=== PATIENT | female | born 1930 | race Caucasian/White ===

== ENCOUNTER 2016-09-24 22:52 | Inpatient (IN) | payer OTHER, BC ==
--- NOTE | 2016-09-24 23:12 | DR.GENAD ---
HPI - PCP Primary Care Physician: ALISON - Complaint/Symptoms Chief Complaint:: EMS RESPONDED TO A CALL FOR A FALL/LIFT ASSIST. EMS STATES , PATIENT SEEMS CONFUSED AND UNSURE IF THIS IS SOMETHING NEW. STATES PATIENT WAS DIAGNOSED WITH ALZHEIMERS 2 YRS AGO. STATES PATIENT IS UNSTEADY OF FEET. - Nurses notes reviewed Nurses Notes Review: Yes - Source History Provided: Patient, EMS - Mode of Arrival Mode of Arrival: EMS - Timing Onset of Chief Complaint: 09/24/16 Came on: Gradually - Duration Duration: Constant Duration: Hours - Location Location: generalized - Severity Severity: Moderate - Associated Signs and Symptoms Associated Signs and Symptoms: confused answers, smiles alot PMH - PMH Past Medical History: Yes Past Medical History: Alzheimers, Arthritis, Dementia, Hypertension, Kidney Stones Past Surgical History: Yes Surgical History: Cholecystectomy - Family History History of Family Medical Conditions: Yes Family Medical History: Hypertension - Social History Type of Tobacco Use: None Alcohol Use: None Do you use any recreational Drugs:: No Lives With: Spouse Lives Where: Home - infectious screening Have you traveled outside the country in the last 6 months?: No Isolation: Standard ROS - Review of Systems Constitutional: No Symptoms Reported Eyes: No Symptoms Reported ENTM: No Symptoms Reported Respiratoy: No Symptoms Reported Cardiovascular: No Symptoms Reported Gastrointestinal/Abdominal: No Symptoms Reported Genitourinary: No Symptoms Reported Neurological: Weakness Musculoskeletal: No Symptoms Reported Integumentary: No Symptoms Reported Hematologic/Lymphatic: No Symptoms Reported Endocrine: No Symptoms Reported Psychiatric: No Symptoms Reported Unable to Obtain Due To: Dementia PE - Vital Signs Vitals: Temperature 98.3 F Pulse Rate 93 Respiratory Rate 18 Blood Pressure 121/63 O2 Sat by Pulse Oximetry 100 - General Limitations: Altered Mental Status General Appearance: Alert, In No Apparent Distress - Head Head Exam: Normal Inspection - Eyes Eye exam: Normal Appearance, EOMI. negative: Scleral Icterus, Conjunctival Injection - ENT ENT Exam: Normal Exam, Normal Oropharynx External Ear Exam: Normal External Inspection - Neck Neck Exam: Normal Inspection, Full ROM, Trachea Midline - Chest Chest Inspection: Normal Inspection - Respiratory Respiratory Exam: Normal Lung Sounds Bilat. negative: Accessory Muscle Use, Respiratory Distress Respiratory Exam: Bilateral Clear to Auscultation - Cardiovascular Cardiovascular Exam: Regular Rate, Normal Rhythm - Abdominal Exam Abdominal Exam: Normal Inspection, Normal Bowel Sounds, Soft. negative: Distention, Tenderness - Extremities Extremities Exam: Normal Inspection, Full ROM - Back Back Exam: Normal Inspection, Full ROM - Neurologic Neurological Exam: Alert, CN II-XII Intact. negative: Oriented X3 - Psychiatric Psychiatric Exam: Normal Mood - Skin Skin Exam: Intact, Normal Color Course - Consultation Called: 23:45 (admitted 1223 per charge nurse) Consultation Comments: unable to contact DR. Whelan ROR - Labs Reviewed Result Diagrams: 09/24/16 23:20 09/24/16 23:20 Laboratory: WBC 7.2 X10^3/uL (3.6-10.0) 09/24/16 23:20 RBC 3.85 X10^6/uL (3.5-5.4) 09/24/16 23:20 Hgb 11.9 g/dL (12.0-16.0) L 09/24/16 23:20 Hct 36.2 % (36.0-47.0) 09/24/16 23:20 MCV 93.8 fL (80.0-100.0) 09/24/16 23:20 MCH 31.0 pg (27.0-34.0) 09/24/16 23:20 MCHC 33.0 g/dL (33.0-35.0) 09/24/16 23:20 RDW 12.6 % (11.6-16.5) 09/24/16 23:20 Plt Count 245 X10^3/uL (150.0-450.0) 09/24/16 23:20 MPV 8.1 fL (7.4-11.0) 09/24/16 23:20 Neut % 77.2 % (42.0-75.0) H 09/24/16 23:20 Lymph % 14.4 % (21.0-51.0) L 09/24/16 23:20 [place] % 6.0 % (0.0-13.0) 09/24/16 23:20 Eos % 1.6 % (0.9-2.9) 09/24/16 23:20 Baso % 0.8 % (0.2-1.0) 09/24/16 23:20 Neut # 5.6 x10^3/uL (2.2-4.8) H 09/24/16 23:20 Lymph # 1.0 X10^3/uL (1.3-2.9) L 09/24/16 23:20 [place] # 0.4 x10^3/uL (0.3-0.8) 09/24/16 23:20 Eos # 0.1 x10^3/uL (0.0-0.2) 09/24/16 23:20 Baso # 0.1 X10^3/uL (0.0-0.1) 09/24/16 23:20 Absolute Nucleated RBC 0.1 /100WBC 09/24/16 23:20 Sodium 141 mmol/L (136-145) 09/24/16 23:20 Corrected Sodium 141 mmol/L (136-145) 09/24/16 23:20 Potassium 3.5 mmol/L (3.5-5.1) 09/24/16 23:20 Chloride 103 mmol/L (98-107) 09/24/16 23:20 Carbon Dioxide 27.1 mmol/L (21-32) 09/24/16 23:20 BUN 26 mg/dL (7-18) H 09/24/16 23:20 Creatinine 1.21 mg/dL (0.55-1.02) H 09/24/16 23:20 Est GFR (MDRD) Af Amer 54 (>60) L 09/24/16 23:20 Est GFR (MDRD) Non-Af 45 (>60) L 09/24/16 23:20 Glucose 120 mg/dL (65-99) H 09/24/16 23:20 Calcium 9.2 mg/dL (8.5-10.1) 09/24/16 23:20 Corrected Calcium TNP 09/24/16 23:20 Total Bilirubin 0.50 mg/dL (0.2-1.0) 09/24/16 23:20 AST 16 Units/L (15-37) 09/24/16 23:20 ALT 21 Units/L (12-78) 09/24/16 23:20 Alkaline Phosphatase 57 Units/L (46-116) 09/24/16 23:20 Total Protein 6.7 g/dL (6.4-8.2) 09/24/16 23:20 Albumin 4.0 g/dL (3.4-5.0) 09/24/16 23:20 Globulin 2.7 g/dL (2.5-4.5) 09/24/16 23:20 Albumin/Globulin Ratio 1.5 Ratio (1.1-2.1) 09/24/16 23:20 Specimen Type Catherized urine 09/24/16 23:08 Urine Color Yellow (YELLOW) 09/24/16 23:08 Urine Appearance Clear (CLEAR) 09/24/16 23:08 Urine pH 7.0 (5.0 - 8.0) 09/24/16 23:08 Ur Specific [place] 1.010 (1.000-1.030) 09/24/16 23:08 Urine Protein 1+ (NEGATIVE) 09/24/16 23:08 Urine Glucose (UA) Negative (NEGATIVE) 09/24/16 23:08 Urine Ketones Negative (NEGATIVE) 09/24/16 23:08 Urine Occult Blood Negative (NEGATIVE) 09/24/16 23:08 Urine Nitrite Negative (NEGATIVE) 09/24/16 23:08 Urine Bilirubin Negative (NEGATIVE) 09/24/16 23:08 Urine Urobilinogen Normal (NORMAL) 09/24/16 23:08 Ur Leukocyte Esterase 1+ (NEGATIVE) 09/24/16 23:08 Urine RBC 0-3 /HPF (NEGATIVE) 09/24/16 23:08 Urine WBC 0-3 /HPF (NEGATIVE) 09/24/16 23:08 Ur Squamous Epith Cells Rare /HPF (NEGATIVE) 09/24/16 23:08 Urine Bacteria Negative /HPF (NEGATIVE) 09/24/16 23:08 Hyaline Casts Few /LPF (NEGATIVE) 09/24/16 23:08 Ur Culture Indicated? No/not indicated 09/24/16 23:08 - XRAY XRAY Interpreted by: Radiologist XRAY Findings: CT Head with age related changes but ventricles with mild to moderate hydro - EKG Rate: 79 [place]: Normal Rhythm: NSR Block: None Hypertrophy: None ST: Normal - Diagnosis Discharge Problem: Altered mental status, unspecified Qualifiers: Altered mental status type: disorientation Qualified Code(s): R41.0 - Disorientation, unspecified - Discharge Plan Condition: Stable - Follow ups/Referrals Follow ups/Referrals: Marshall Whelan [Primary Care Provider] - 3 days - Instructions
[2016-09-24 23:32] LABS: BASOPHILS # (AUTO) 0.1 X10^3/uL (0.0-0.1); BASOPHILS % (AUTO) 0.8 % (0.2-1.0); EOSINOPHILS # (AUTO) 0.1 x10^3/uL (0.0-0.2); EOSINOPHILS % (AUTO) 1.6 % (0.9-2.9); HEMATOCRIT 36.2 % (36.0-47.0); HEMOGLOBIN 11.9 g/dL (12.0-16.0); LYMPHOCYTES % (AUTO) 14.4 % (21.0-51.0); MEAN CORPUSCULAR VOLUME 93.8 fL (80.0-100.0); MEAN PLATELET VOLUME 8.1 fL (7.4-11.0); MONOCYTES # (AUTO) 0.4 x10^3/uL (0.3-0.8); NEUTROPHILS # (AUTO) 5.6 x10^3/uL (2.2-4.8); NEUTROPHILS % (AUTO) 77.2 % (42.0-75.0); PLATELET COUNT 245 X10^3/uL (150.0-450.0); RED BLOOD COUNT 3.85 X10^6/uL (3.5-5.4); RED CELL DISTRIBUTION WIDTH 12.6 % (11.6-16.5); WHITE BLOOD COUNT 7.2 X10^3/uL (3.6-10.0)
[2016-09-24 23:33] LABS: BILIRUBIN,URINE NEGATIVE (NEGATIVE); BLOOD/HEMOGLOBIN,URINE NEGATIVE (NEGATIVE); GLUCOSE, URINE NEGATIVE (NEGATIVE); KETONES,URINE NEGATIVE (NEGATIVE); LEUKOCYTE ESTERASE ,URINE 1+ (NEGATIVE); NITRITES,URINE NEGATIVE (NEGATIVE); PROTEIN,URINE 1+ (NEGATIVE); UROBILINOGEN,URINE NORMAL (NORMAL)
[2016-09-24 23:40] LABS: ALANINE AMINOTRANSFERASE 21 Units/L (12-78); ALKALINE PHOSPHATASE 57 Units/L (46-116); ASPARTATE AMINO TRANSFERASE 16 Units/L (15-37); BLOOD UREA NITROGEN 26 mg/dL (7-18); CALCIUM 9.2 mg/dL (8.5-10.1); CARBON DIOXIDE 27.1 mmol/L (21-32); CHLORIDE 103 mmol/L (98-107); COR NA(FOR HYPERGLY) 141 mmol/L (136-145); CREATININE 1.21 mg/dL (0.55-1.02); GLUCOSE 120 mg/dL (65-99); SODIUM 141 mmol/L (136-145); TOTAL PROTEIN 6.7 g/dL (6.4-8.2); eGFR BLACK RACES 54 (>60); eGFR NON BLACK RACES 45 (>60)
--- NOTE | 2016-09-24 23:45 | CT ---
EXAM: CT BRAIN WITHOUT CONTRAST INDICATION: Fall, confusion COMPARISION: No Priors TECHNIQUE: Routine axial CT of the brain was performed without intravenous contrast. FINDINGS: There is advanced bilateral cortical atrophy. Patchy areas of low-attenuation are identified in the periventricular white matter bilaterally. The ventricular system is abnormally dilated. No intra or extra-axial mass or hemorrhage. The carranza-white junction is preserved. There is no evidence of subacu te ischemic change. The basilar cisterns are clear. The skull is intact. The paranasal sinuses and mastoid air cells are clear. IMPRESSION: There is bilateral cortical atrophy. Periventricular and subcortical white matter changes are presen t bilaterally consistent with moderate small vessel vasculopathy. The ventricular system is dilated out of proportion to the cortical atrophy consistent with mild to moderate hydrocephalus. Reported By:
[2016-09-24 23:48] LABS: APPEARANCE,URINE CLEAR (CLEAR); BACTERIA,URINE NEGATIVE /HPF (NEGATIVE); COLOR,URINE YELLOW (YELLOW); HYALINE CASTS, URINE FEW /LPF (NEGATIVE); RBC,URINE 0-3 /HPF (NEGATIVE); SQUAMOUS EPITHELIAL CELL,UR RARE /HPF (NEGATIVE)
[2016-09-25 05:54] VITALS: BMI 23.0
[2016-09-25 08:10] LABS: BASOPHILS # (AUTO) 0.1 X10^3/uL (0.0-0.1); BASOPHILS % (AUTO) 0.8 % (0.2-1.0); EOSINOPHILS # (AUTO) 0.1 x10^3/uL (0.0-0.2); EOSINOPHILS % (AUTO) 2.1 % (0.9-2.9); HEMATOCRIT 33.1 % (36.0-47.0); HEMOGLOBIN 11.4 g/dL (12.0-16.0); LYMPHOCYTES # (AUTO) 1.6 X10^3/uL (1.3-2.9); LYMPHOCYTES % (AUTO) 23.6 % (21.0-51.0); MEAN CORPUSCULAR HEMOGLOBIN 31.8 pg (27.0-34.0); MEAN CORPUSCULAR HGB CONC 34.5 g/dL (33.0-35.0); MEAN CORPUSCULAR VOLUME 92.2 fL (80.0-100.0); MONOCYTES # (AUTO) 0.6 x10^3/uL (0.3-0.8); NEUTROPHILS # (AUTO) 4.5 x10^3/uL (2.2-4.8); NEUTROPHILS % (AUTO) 64.5 % (42.0-75.0); PLATELET COUNT 230 X10^3/uL (150.0-450.0); RED BLOOD COUNT 3.59 X10^6/uL (3.5-5.4); RED CELL DISTRIBUTION WIDTH 12.7 % (11.6-16.5); WHITE BLOOD COUNT 6.9 X10^3/uL (3.6-10.0)
[2016-09-25 08:19] LABS: ALANINE AMINOTRANSFERASE 22 Units/L (12-78); ALBUMIN 3.3 g/dL (3.4-5.0); ALKALINE PHOSPHATASE 51 Units/L (46-116); ASPARTATE AMINO TRANSFERASE 15 Units/L (15-37); BLOOD UREA NITROGEN 27 mg/dL (7-18); CALCIUM 8.6 mg/dL (8.5-10.1); CARBON DIOXIDE 30.4 mmol/L (21-32); CHLORIDE 106 mmol/L (98-107); COR CA(FOR HYPOALB) 9.2 mg/dL (8.5-10.1); CREATININE 0.98 mg/dL (0.55-1.02); GLUCOSE 106 mg/dL (65-99); SODIUM 141 mmol/L (136-145); TOTAL PROTEIN 5.9 g/dL (6.4-8.2); eGFR BLACK RACES > 60 (>60); eGFR NON BLACK RACES 57 (>60)
[2016-09-25] MEDS ORDERED: PROTONIX TAB 40 MG PO SCH (09:00)
--- NOTE | 2016-09-25 09:52 | MRI ---
STUDY: MRI OF THE BRAIN WITHOUT AND WITH GADOLINIUM HISTORY: Dementia. Possible hydrocephalus. Fall. Confusion. Technique: Multiplanar multi-sequence MRI of the brain was obtained utilizing standard departmental protocol. Sagittal and axial T1, axial T2, FLAIR, diffusion (DWI/ADC) images through the brain were performed. 15 cc of Omniscan was administered intravenously without reported complication following acquisition of informed written consent. Post gadolinium axial coronal T1 weighted images were also performed a nd reviewed. Comparison: Head CT from September 24, 2016. Findings: Pre gadolinium brain: The sulci, cisterns and ventricles are prominent consistent with diffuse volum e loss. There are confluent and scattered foci of T2 prolongation in the periventricular and subcort ical white matter of both hemispheres. This is a nonspecific finding which likely represents microan giopathic change in a patient of this age. There is no evidence of acute territorial infarction, hemorrhage, mass, mass effect, or midline shif t. There are no abnormal intra-axial or extra-axial fluid collections. The major intracranial vascular flow voids appear intact. The vertebral arteries are codominant. Post gadolinium brain: Following the uneventful administration of intravenous gadolinium, there is n o evidence of abnormal parenchymal or leptomeningeal enhancement. IMPRESSION: 1. No evidence of acute intracranial abnormality. 2. Nonspecific white matter change and volume loss. Reported By:
[2016-09-25] MEDS ORDERED: DEPAKOTE D.R. TAB PO SCH (10:00)
[2016-09-25] MEDS: MOBIC TAB 15 MG PO SCH (10:40)
[2016-09-25] MEDS: LYRICA CAP 75 MG PO SCH ×2 (10:41→20:39)
[2016-09-25] MEDS: CHLORTHALIDONE PO SCH (10:41)
[2016-09-25] MEDS: DEPAKOTE SPRINKLE PO SCH ×2 (10:46→20:40)
[2016-09-25] MEDS: PROTONIX INJ 40 MG VIAL IVP SCH (10:46)
--- NOTE | 2016-09-25 11:46 | DR.H&P ---
H&P - History & Physical for Day of: H&P Date: 09/25/16 - Chief Complaint Chief Complaint: ALTERED MENTAL STATUS - Allergies Allergies/Adverse Reactions: Allergies Allergy/AdvReac Type Severity Reaction Status Date / Time No Known Drug Allergy Allergy Verified 09/24/16 23:07 - History of Present Illness History of Present Illness: THIS IS AN 86 YEAR OLD FEMALE WHO IS A PATIENT OF OURS. SHE PRESENTS TO THE EMERGENCY ROOM, VIA EMS, WITH REPORTS OF A FALL AT HOME AND ALTERED MENTAL STATUS. PATIENT WAS DIAGNOSED WITH ALZHEIMERS DEMENTIA APPROXIMATELY TWO YEARS AGO. DEMENTIA HAS NOT BEEN SEVERE AND PATIENT IS MOST OF THE TIME AFFABLE WITH INTERMITTENT CONFUSION. PATIENT IS NOTED WITH AN UNSTEADY GAIT. IS UNSURE IF PATIENT HIT HER HEAD WITH FALL. PATIENT'S AFFECT IS NOTED TO CHANGE DRASTICALLY FROM LAUGHING TO COMBATIVE WITHIN MINUTES. REPORTS THIS IS UNLIKE PATIENT'S NORMAL BEHAVIOR. PATIENT IS UNABLE TO ANSWER QUESTIONS. PATIENT MAKES EYE CONTACT WHEN SPOKEN TO AND ATTEMPTS TO SPEAK BUT SPEECH IS GARBLED AND UNCLEAR. LABS, CT OBTAINED. CBC WNL EXCEPT: HGB 11.9. CMP WNL EXCEPT: BUN/CREAT 26/1.21, GFR 45, GLUCOSE 120. URINALYSIS WNL. BRAIN CT REPORTS BILATERAL CORTICAL ATROPHY; PERIVENTRICULAR AND SUBCORTICAL WHITE MATTER CHANGES PRESENT BILATERALLY CONSISTENT WITH MODERATE SMALL VESSEL VASCULOPATHY; VENTRICULAR SYSTEM IS DILATED OUR OF PROPORTION TO THE CORTICAL ATROPHY CONSISTENT WITH MILD TO MODERATE HYDROCEPHALUS. EKG: SINUS RHYTHM, RATE 79. WE ADMITTED PATIENT FOR FURTHER TREATMENT AND EVALUATION. AT 0625 THIS MORNING PATIENT HAD A SEIZURE LASTING APPROXIMATELY 45 SECONDS WITH JERKING OF HEAD AND ARMS. PATIENT WAS UNRESPONISVE TO VERBAL AND TACTILE STIMULI AFTER SEIZURE. WE HAVE PLANNED FOR AN MRI BRAIN TODAY SINCE PATIENT HAS NO HISTORY OF SEIZURES. PATIENT HAS BEEN TRANSFERRED TO ICU FOR CLOSE MONITORING. WE WILL FOLLOW UP IN AM WITH LABS. - Past Medical History Past Medical History: Alzheimers, Arthritis, Dementia, Hypertension, Kidney Stones Additional Medical History: Gall Bladder Disease - Past Surgical History Surgical History: Cholecystectomy - Family History Family Medical History: Hypertension - Social History Type of Tobacco Use: None Does any household member use tobacco: No Alcohol Use: None Drug Use: None - Medications Home Medications: Chlorthalidone [HYGROTON 25 mg tab *] 1 tab PO DAILY 09/24/16 [History Confirmed 09/25/16] Meloxicam [Meloxicam] 1 tab PO DAILY 09/24/16 [History Confirmed 09/25/16] Mirabegron [Myrbetriq] 1 tab PO HS 09/24/16 [History Confirmed 09/25/16] Pantoprazole Sodium [Pantoprazole Sodium] 1 tab PO DAILY 09/24/16 [History Confirmed 09/25/16] Pregabalin 1 cap PO BID 09/24/16 [History Confirmed 09/25/16] Solifenacin Succinate [Vesicare] 1 tab PO HS 09/24/16 [History Confirmed ] Tizanidine HCl [Tizanidine HCl] 1 tab PO HS 09/24/16 [History Confirmed 09/25/16 ] - Review of Systems Constitutional: Weakness Eyes: No Symptoms Reported. denies: Pain, Vision Change, Conjunctivae Inflammation, Eyelid Inflammation, Redness ENT: No Symptoms Reported. denies: Ear Pain, Ear Discharge, Nose Pain, Nose Discharge, Nose Congestion, Mouth Pain, Mouth Swelling, Throat Pain, Throat Swelling Respiratory: No Symptoms Reported. denies: Cough, Shortness of Breath, Hemoptysis, SOB with Excertion, Pleuritic Pain, Sputum, Wheezing Cardiovascular: No Symptoms Reported. denies: Chest Pain, Palpitations, Orthopnea, Paroxysmal Noc. Dyspnea, Edema, Light Headedness Gastrointestinal: No Symptoms Reported. denies: Nausea, Vomiting, Abdominal Pain, Diarrhea, Constipation, Melena, Hematochezia Genitourinary: No Symptoms Reported. denies: Dysuria, Frequency, Incontinence, Hematuria, Retention Musculoskeletal: No Symptoms Reported. denies: Shoulder Pain, Arm Pain, Back Pain, Hand Pain, Leg Pain, Foot Pain, Neck Pain Skin: No Symptoms Reported. denies: Rash, Lesions, Jaundice, Bruising, Wound, Ecchymosis Neurological: Weakness, Incoordination, Change in Speech, Confusion, Seizures - Physical Exam Vital Signs: Temperature 97.8 F Pulse Rate [Brachial] 70 Respiratory Rate 18 Blood Pressure [Right Arm] 103/50 O2 Sat by Pulse Oximetry 94 Oriented: Not Oriented Eyes: Normal. negative: Blurred Vision, Diplopia, Discharge, Pain, Redness, Photophobia Ear: Normal. negative: Swelling, Ecchymosis, Hemotypanum, Abrasion, Laceration Nose: Normal. negative: Injected, Discharge, Blood Throat: Dry. negative: Tonsillar Hypertrophy, Exudate Respiratory: Clear Throughout Cardiovascular: Normal. negative: Murmur, Edema : Normal Auscultation: Bowel Sounds: Decreased. negative: Bruit Palpation: Normal. negative: Spleen Enlarged, Liver Enlarged, Mass Pulsatile Tenderness: Normal. negative: Rebound, Guarding, Rigidity Skin: Decreased [place]. negative: Diaphoresis, Wound, Bruising, Ecchymosis Musculoskeletal: Instability Psychiatric: Other (Confusion) Mood Description: Hostile Affect: Hysterical Speech Pattern: Unclear, Inappropriate - Assessment/Plan (1) Altered mental status, unspecified Qualifiers: Altered mental status type: disorientation Coma depth: C Coma timing: C Qualified Code(s): R41.0 - Disorientation, unspecified Status: Acute Plan: ADMIT PATIENT, MONITOR ON TELEMETRY, MONITOR NEURO STATUS. (2) New onset seizure Status: Acute Plan: START DEPAKOTE 250MG BID, VALIUM IV NEEDED, MONITOR. (3) Alzheimer's dementia Qualifiers: Alzheimer's disease onset: A Dementia behavioral disturbance: with behavioral disturbance Status: Chronic (4) GERD (gastroesophageal reflux disease) Qualifiers: Esophagitis presence: esophagitis presence not specified Qualified Code(s) : K21.9 - Gastro-esophageal reflux disease without esophagitis Status: Chronic
[2016-09-25] MEDS: VALIUM INJ IVP PRN ×2 (11:52→18:30)
[2016-09-25] MEDS: ZANAFLEX PO SCH (20:39)
[2016-09-25] MEDS: DETROL LA 4 MG CAP EXT REL PO SCH (20:40)
[2016-09-25] MEDS ORDERED: [UNRECOGNIZED DRUG - OTHER] PO SCH (21:00)
[2016-09-25 23:29] LABS: BILIRUBIN,URINE NEGATIVE (NEGATIVE); BLOOD/HEMOGLOBIN,URINE NEGATIVE (NEGATIVE); GLUCOSE, URINE NEGATIVE (NEGATIVE); KETONES,URINE NEGATIVE (NEGATIVE); LEUKOCYTE ESTERASE ,URINE NEGATIVE (NEGATIVE); NITRITES,URINE NEGATIVE (NEGATIVE); PH,URINE 6.5 (5.0 - 8.0); PROTEIN,URINE NEGATIVE (NEGATIVE); UROBILINOGEN,URINE NORMAL (NORMAL)
[2016-09-25 23:41] LABS: APPEARANCE,URINE CLEAR (CLEAR); BACTERIA,URINE NEGATIVE /HPF (NEGATIVE); COLOR,URINE YELLOW (YELLOW); RBC,URINE 0-3 /HPF (NEGATIVE); SQUAMOUS EPITHELIAL CELL,UR RARE /HPF (NEGATIVE)
[2016-09-26] MEDS: VALIUM INJ IVP PRN ×2 (02:05→16:05)
[2016-09-26 06:09] LABS: BASOPHILS # (AUTO) 0.1 X10^3/uL (0.0-0.1); BASOPHILS % (AUTO) 1.1 % (0.2-1.0); EOSINOPHILS # (AUTO) 0.3 x10^3/uL (0.0-0.2); EOSINOPHILS % (AUTO) 4.7 % (0.9-2.9); HEMATOCRIT 33.2 % (36.0-47.0); HEMOGLOBIN 11.4 g/dL (12.0-16.0); LYMPHOCYTES # (AUTO) 2.2 X10^3/uL (1.3-2.9); LYMPHOCYTES % (AUTO) 35.4 % (21.0-51.0); MEAN CORPUSCULAR HEMOGLOBIN 31.8 pg (27.0-34.0); MEAN CORPUSCULAR HGB CONC 34.3 g/dL (33.0-35.0); MEAN CORPUSCULAR VOLUME 92.8 fL (80.0-100.0); MEAN PLATELET VOLUME 8.2 fL (7.4-11.0); MONOCYTES # (AUTO) 0.6 x10^3/uL (0.3-0.8); NEUTROPHILS # (AUTO) 3.1 x10^3/uL (2.2-4.8); NEUTROPHILS % (AUTO) 49.8 % (42.0-75.0); PLATELET COUNT 217 X10^3/uL (150.0-450.0); RED BLOOD COUNT 3.58 X10^6/uL (3.5-5.4); RED CELL DISTRIBUTION WIDTH 12.9 % (11.6-16.5); WHITE BLOOD COUNT 6.2 X10^3/uL (3.6-10.0)
[2016-09-26 07:23] LABS: ALANINE AMINOTRANSFERASE 22 Units/L (12-78); ALKALINE PHOSPHATASE 45 Units/L (46-116); ASPARTATE AMINO TRANSFERASE 23 Units/L (15-37); BLOOD UREA NITROGEN 14 mg/dL (7-18); CALCIUM 8.3 mg/dL (8.5-10.1); CARBON DIOXIDE 29.8 mmol/L (21-32); CHLORIDE 105 mmol/L (98-107); COR CA(FOR HYPOALB) 9.1 mg/dL (8.5-10.1); CREATININE 0.58 mg/dL (0.55-1.02); GLUCOSE 86 mg/dL (65-99); SODIUM 143 mmol/L (136-145); TOTAL PROTEIN 5.5 g/dL (6.4-8.2); eGFR BLACK RACES > 60 (>60); eGFR NON BLACK RACES > 60 (>60)
[2016-09-26] MEDS: DEPAKOTE SPRINKLE PO SCH ×2 (08:50→23:02)
[2016-09-26] MEDS: CHLORTHALIDONE PO SCH (08:50)
[2016-09-26] MEDS: MOBIC TAB 15 MG PO SCH (08:50)
[2016-09-26] MEDS: PROTONIX INJ 40 MG VIAL IVP SCH (08:50)
[2016-09-26] MEDS: LYRICA CAP 75 MG PO SCH ×2 (08:50→23:04)
[2016-09-26] MEDS ORDERED: POTASSIUM CHLORIDE LIQ 20 MEQ UDC PO PRN (09:16)
[2016-09-26] MEDS ORDERED: K-DUR TAB 20 MEQ PO PRN (09:16)
[2016-09-26] MEDS ORDERED: K-LYTE EFFERVESCENT PO PRN (09:16)
[2016-09-26] MEDS ORDERED: NS 100 ML IV 100 ML IV ONE ×2 (11:36→12:45)
[2016-09-26] MEDS: MAGNESIUM SULFATE 1 GM/100 mL PREMIX 1 GM/100 ML BAG IV SCH ×2 (11:44→14:36)
--- NOTE | 2016-09-26 13:06 | PCM.PROG ---
Progress Note - Progress Note for Day of Date: 09/26/16 - Subjective Subjective: PATIENT RESTS IN BED, CALMLY, WITH AND SON AT BEDSIDE. PATIENT IS DROWSY. PATIENT WAS COMBATIVE YESTERDAY ALONG WITH CONFUSION. SHE WAS PLACED ON VALIUM 5MG IV TID FOR AGITATION. RESTRAINTS WERE UTILIZED FOR PATIENT'S PROTECTION. SHE WAS ALSO STARTED ON DEPAKOTE BID FOR NEW ONSET SEIZURES. AN MRI OF BRAIN WAS OBTAINED AND REPORTS: NO EVIDENCE OF ACUTE INTRACRANIAL ABNORMALITY; NONSPECIFIC WHITE MATTER CHANGE AND VOLUME LOSS. CBC WNL EXCEPT: H/H 11.4/33.2. CMP WNL EXCEPT: POTASSIUM 2.9, CALCIUM 8.3, MAGNESIUM 1.6, TOT PROTEIN 5.5, ALBUMIN 3.0. WE WILL REMOVE RESTRAINTS TODAY AND DECREASE VALIUM TO 2.5MG IV Q8H NEEDED. WE WILL CONTINUE TO MONITOR ON TELEMETRY AND FOLLOW UP IN AM WITH LABS. - Past Medical Family Social History Past Med/Fam/Surg Hx: No changes since H&P Allergies: Allergies No Known Drug Allergy Allergy (Verified 09/24/16 23:07) - Review of Systems ROS: No change since H&P - Vital Signs and I&O's Vital Signs: Temperature 98.1 F Pulse Rate [Brachial] 74 Respiratory Rate 16 Blood Pressure [Right Arm] 107/51 O2 Sat by Pulse Oximetry 100 Intake and Output: Intake & Output 09/24/16 09/25/16 09/26/16 09/27/16 11:59 11:59 11:59 11:59 Intake Total 0 100 Output Total 0 2200 Balance 0 -2100 - Physical Exam Oriented: Not Oriented Eyes: Normal. negative: Blurred Vision, Diplopia, Discharge, Pain, Redness, Photophobia Ear: Normal. negative: Swelling, Ecchymosis, Hemotypanum, Abrasion, Laceration Nose: Normal. negative: Injected, Discharge, Blood Throat: Dry. negative: Tonsillar Hypertrophy, Exudate Cardiovascular: Normal. negative: Murmur, Edema : Normal Auscultation: Bowel Sounds: Decreased. negative: Bruit Palpation: Normal. negative: Spleen Enlarged, Liver Enlarged, Mass Pulsatile Tenderness: Normal. negative: Rebound, Guarding, Rigidity Skin: Normal. negative: Diaphoresis, Wound, Bruising, Ecchymosis Musculoskeletal: Instability Psychiatric: Other (Confusion) Mood Description: Calm Speech Pattern: Unclear, Inappropriate - Laboratory and Diagnostics Result Diagrams: 09/26/16 05:35 09/26/16 05:35 Labs: Laboratory WBC 6.2 X10^3/uL (3.6-10.0) 09/26/16 05:35 RBC 3.58 X10^6/uL (3.5-5.4) 09/26/16 05:35 Hgb 11.4 g/dL (12.0-16.0) L 09/26/16 05:35 Hct 33.2 % (36.0-47.0) L 09/26/16 05:35 MCV 92.8 fL (80.0-100.0) 09/26/16 05:35 MCH 31.8 pg (27.0-34.0) 09/26/16 05:35 MCHC 34.3 g/dL (33.0-35.0) 09/26/16 05:35 RDW 12.9 % (11.6-16.5) 09/26/16 05:35 Plt Count 217 X10^3/uL (150.0-450.0) 09/26/16 05:35 MPV 8.2 fL (7.4-11.0) 09/26/16 05:35 Neut % 49.8 % (42.0-75.0) 09/26/16 05:35 Lymph % 35.4 % (21.0-51.0) 09/26/16 05:35 [place] % 9.0 % (0.0-13.0) 09/26/16 05:35 Eos % 4.7 % (0.9-2.9) H 09/26/16 05:35 Baso % 1.1 % (0.2-1.0) H 09/26/16 05:35 Neut # 3.1 x10^3/uL (2.2-4.8) 09/26/16 05:35 Lymph # 2.2 X10^3/uL (1.3-2.9) 09/26/16 05:35 [place] # 0.6 x10^3/uL (0.3-0.8) 09/26/16 05:35 Eos # 0.3 x10^3/uL (0.0-0.2) H 09/26/16 05:35 Baso # 0.1 X10^3/uL (0.0-0.1) 09/26/16 05:35 Absolute Nucleated RBC 0.0 /100WBC 09/26/16 05:35 Sodium 143 mmol/L (136-145) 09/26/16 05:35 Corrected Sodium TNP 09/26/16 05:35 Potassium 2.9 mmol/L (3.5-5.1) L* 09/26/16 05:35 Chloride 105 mmol/L (98-107) 09/26/16 05:35 Carbon Dioxide 29.8 mmol/L (21-32) 09/26/16 05:35 BUN 14 mg/dL (7-18) 09/26/16 05:35 Creatinine 0.58 mg/dL (0.55-1.02) 09/26/16 05:35 Est GFR (MDRD) Af Amer > 60 (>60) 09/26/16 05:35 Est GFR (MDRD) Non-Af > 60 (>60) 09/26/16 05:35 Glucose 86 mg/dL (65-99) 09/26/16 05:35 Calcium 8.3 mg/dL (8.5-10.1) L 09/26/16 05:35 Corrected Calcium 9.1 mg/dL (8.5-10.1) 09/26/16 05:35 Magnesium 1.6 mg/dL (1.7-2.9) L 09/26/16 05:35 Total Bilirubin 0.50 mg/dL (0.2-1.0) 09/26/16 05:35 AST 23 Units/L (15-37) 09/26/16 05:35 ALT 22 Units/L (12-78) 09/26/16 05:35 Alkaline Phosphatase 45 Units/L (46-116) L 09/26/16 05:35 Total Protein 5.5 g/dL (6.4-8.2) L 09/26/16 05:35 Albumin 3.0 g/dL (3.4-5.0) L 09/26/16 05:35 Globulin 2.5 g/dL (2.5-4.5) 09/26/16 05:35 Albumin/Globulin Ratio 1.2 Ratio (1.1-2.1) 09/26/16 05:35 Specimen Type Clean catch urine 09/25/16 22:50 Urine Color Yellow (YELLOW) 09/25/16 22:50 Urine Appearance Clear (CLEAR) 09/25/16 22:50 Urine pH 6.5 (5.0 - 8.0) 09/25/16 22:50 Ur Specific [place] 1.015 (1.000-1.030) 09/25/16 22:50 Urine Protein Negative (NEGATIVE) 09/25/16 22:50 Urine Glucose (UA) Negative (NEGATIVE) 09/25/16 22:50 Urine Ketones Negative (NEGATIVE) 09/25/16 22:50 Urine Occult Blood Negative (NEGATIVE) 09/25/16 22:50 Urine Nitrite Negative (NEGATIVE) 09/25/16 22:50 Urine Bilirubin Negative (NEGATIVE) 09/25/16 22:50 Urine Urobilinogen Normal (NORMAL) 09/25/16 22:50 Ur Leukocyte Esterase Negative (NEGATIVE) 09/25/16 22:50 Urine RBC 0-3 /HPF (NEGATIVE) 09/25/16 22:50 Urine WBC 0-3 /HPF (NEGATIVE) 09/25/16 22:50 Ur Squamous Epith Cells Rare /HPF (NEGATIVE) 09/25/16 22:50 Urine Bacteria Negative /HPF (NEGATIVE) 09/25/16 22:50 Hyaline Casts Few /LPF (NEGATIVE) 09/24/16 23:08 Ur Culture Indicated? No/not indicated 09/25/16 22:50 - Plan (1) Altered mental status, unspecified Status: Acute Qualifiers: Altered mental status type: disorientation Coma depth: C Coma timing: C Qualified Code(s): R41.0 - Disorientation, unspecified Plan: CONTINUE TO MONITOR ON TELEMETRY, MONITOR NEURO STATUS. (2) New onset seizure Status: Acute Plan: CONTINUE DEPAKOTE 250MG BID, VALIUM IV NEEDED, MONITOR. (3) Alzheimer's dementia Status: Chronic Qualifiers: Alzheimer's disease onset: late-onset Dementia behavioral disturbance: with behavioral disturbance Qualified Code(s): G30.1 - Alzheimer's disease with late onset; F02.81 - Dementia in other diseases classified elsewhere with behavioral disturbance Plan: DECREASE VALIUM TO 2.5MG IV Q8PRN, REMOVE RESTRAINTS, MONITOR. (4) GERD (gastroesophageal reflux disease) Status: Chronic Qualifiers: Esophagitis presence: esophagitis presence not specified Qualified Code(s) : K21.9 - Gastro-esophageal reflux disease without esophagitis
[2016-09-26] MEDS ORDERED: MAGNESIUM SULFATE 1 GM/100 mL PREMIX 1 GM/100 ML BAG IV ONE (14:23)
[2016-09-26] MEDS: DETROL LA 4 MG CAP EXT REL PO SCH (23:02)
[2016-09-26] MEDS: ZANAFLEX PO SCH (23:04)
[2016-09-27] MEDS: VALIUM INJ IVP PRN (01:04)
[2016-09-27] MEDS ORDERED: LR 1000 ML IV 1,000 ML IV ONE (01:25)
[2016-09-27] MEDS: LR 1000 ML IV 1,000 ML IV SCH ×2 (03:56→06:56)
[2016-09-27 06:24] LABS: BASOPHILS # (AUTO) 0.1 X10^3/uL (0.0-0.1); EOSINOPHILS # (AUTO) 0.3 x10^3/uL (0.0-0.2); EOSINOPHILS % (AUTO) 5.3 % (0.9-2.9); HEMATOCRIT 32.6 % (36.0-47.0); HEMOGLOBIN 11.2 g/dL (12.0-16.0); LYMPHOCYTES # (AUTO) 1.8 X10^3/uL (1.3-2.9); LYMPHOCYTES % (AUTO) 29.7 % (21.0-51.0); MEAN CORPUSCULAR HEMOGLOBIN 31.6 pg (27.0-34.0); MEAN CORPUSCULAR HGB CONC 34.3 g/dL (33.0-35.0); MEAN CORPUSCULAR VOLUME 92.1 fL (80.0-100.0); MEAN PLATELET VOLUME 8.2 fL (7.4-11.0); MONOCYTES # (AUTO) 0.5 x10^3/uL (0.3-0.8); MONOCYTES % (AUTO) 8.5 % (0.0-13.0); NEUTROPHILS # (AUTO) 3.3 x10^3/uL (2.2-4.8); NEUTROPHILS % (AUTO) 55.5 % (42.0-75.0); PLATELET COUNT 219 X10^3/uL (150.0-450.0); RED BLOOD COUNT 3.54 X10^6/uL (3.5-5.4); RED CELL DISTRIBUTION WIDTH 12.6 % (11.6-16.5); WHITE BLOOD COUNT 5.9 X10^3/uL (3.6-10.0)
[2016-09-27 06:39] LABS: ALANINE AMINOTRANSFERASE 20 Units/L (12-78); ALBUMIN 2.7 g/dL (3.4-5.0); ALKALINE PHOSPHATASE 47 Units/L (46-116); ASPARTATE AMINO TRANSFERASE 17 Units/L (15-37); BLOOD UREA NITROGEN 14 mg/dL (7-18); CALCIUM 8.1 mg/dL (8.5-10.1); CARBON DIOXIDE 29.4 mmol/L (21-32); CHLORIDE 106 mmol/L (98-107); COR CA(FOR HYPOALB) 9.1 mg/dL (8.5-10.1); CREATININE 0.65 mg/dL (0.55-1.02); GLUCOSE 110 mg/dL (65-99); MAGNESIUM 1.8 mg/dL (1.7-2.9); SODIUM 144 mmol/L (136-145); TOTAL PROTEIN 5.2 g/dL (6.4-8.2); eGFR BLACK RACES > 60 (>60); eGFR NON BLACK RACES > 60 (>60)
[2016-09-27] MEDS: K-RIDER 10 MEQ/NS 100 ML 10 MEQ/100 ML BAG IV PRN ×2 (08:10→09:48)
[2016-09-27] MEDS: ALBUMIN HUMAN 25%- 100ML 100 ML IV SCH (08:10)
[2016-09-27] MEDS: PROTONIX INJ 40 MG VIAL IVP SCH (08:11)
[2016-09-27] MEDS: MOBIC TAB 15 MG PO SCH (09:47)
[2016-09-27] MEDS: DEPAKOTE SPRINKLE PO SCH ×2 (09:47→22:44)
[2016-09-27] MEDS: LYRICA CAP 75 MG PO SCH ×2 (09:47→22:46)
[2016-09-27] MEDS: CHLORTHALIDONE PO SCH (09:47)
--- NOTE | 2016-09-27 16:07 | PCM.PROG ---
Progress Note - Progress Note for Day of Date: 09/27/16 - Subjective Subjective: PATIENT RESTS IN BED, CALMLY, WITH . PATIENT IS DROWSY. STAFF REPORTS PATIENT HAD AGITATION THROUGH THE NIGHT AND VALIUM 2.5MG IV WAS ADMINISTERED WITH A CATATONIC RESPONSE. WE WILL DISCONTINUE VALIUM TODAY. RESTRAINTS WERE REMOVED YESTERDAY AND PATIENT HAS DONE WELL. SHE CONTINUES ON DEPAKOTE BID FOR NEW ONSET SEIZURES. CBC WNL EXCEPT: H/H 11.2/32.6. CMP WNL EXCEPT: POTASSIUM 3.3, CALCIUM 8.1, TOT PROTEIN 5.2, ALBUMIN 2.7. WE WILL DISCONTINUE VALIUM, START ALBUMIN, CONTINUE TO MONITOR ON TELEMETRY, AND FOLLOW UP IN AM WITH LABS. - Past Medical Family Social History Past Med/Fam/Surg Hx: No changes since H&P Allergies: Allergies No Known Drug Allergy Allergy (Verified 09/24/16 23:07) - Review of Systems ROS: No change since H&P - Vital Signs and I&O's Vital Signs: Temperature 97.6 F Pulse Rate [Brachial] 83 Respiratory Rate 17 Blood Pressure [Left Arm] 88/38 Blood Pressure [Right Arm] 96/64 O2 Sat by Pulse Oximetry 100 Intake and Output: Intake & Output 09/25/16 09/26/16 09/27/16 09/28/16 11:59 11:59 11:59 11:59 Intake Total 0 100 2349 1800 Output Total 0 2200 1450 1400 Balance 0 -2100 899 400 - Physical Exam Oriented: Not Oriented Eyes: Normal. negative: Blurred Vision, Diplopia, Discharge, Pain, Redness, Photophobia Ear: Normal. negative: Swelling, Ecchymosis, Hemotypanum, Abrasion, Laceration Nose: Normal. negative: Injected, Discharge, Blood Throat: Dry. negative: Tonsillar Hypertrophy, Exudate Respiratory: Normal Cardiovascular: Normal. negative: Murmur, Edema : Normal Auscultation: Bowel Sounds: Decreased. negative: Bruit Palpation: Normal. negative: Spleen Enlarged, Liver Enlarged, Mass Pulsatile Tenderness: Normal. negative: Rebound, Guarding, Rigidity Skin: Normal. negative: Diaphoresis, Wound, Bruising, Ecchymosis Musculoskeletal: Instability Psychiatric: Other (Confusion) Mood Description: Calm Affect: Normal Speech Pattern: Unclear, Inappropriate - Laboratory and Diagnostics Result Diagrams: 09/27/16 05:30 09/27/16 05:30 Labs: Laboratory WBC 5.9 X10^3/uL (3.6-10.0) 09/27/16 05:30 RBC 3.54 X10^6/uL (3.5-5.4) 09/27/16 05:30 Hgb 11.2 g/dL (12.0-16.0) L 09/27/16 05:30 Hct 32.6 % (36.0-47.0) L 09/27/16 05:30 MCV 92.1 fL (80.0-100.0) 09/27/16 05:30 MCH 31.6 pg (27.0-34.0) 09/27/16 05:30 MCHC 34.3 g/dL (33.0-35.0) 09/27/16 05:30 RDW 12.6 % (11.6-16.5) 09/27/16 05:30 Plt Count 219 X10^3/uL (150.0-450.0) 09/27/16 05:30 MPV 8.2 fL (7.4-11.0) 09/27/16 05:30 Neut % 55.5 % (42.0-75.0) 09/27/16 05:30 Lymph % 29.7 % (21.0-51.0) 09/27/16 05:30 [place] % 8.5 % (0.0-13.0) 09/27/16 05:30 Eos % 5.3 % (0.9-2.9) H 09/27/16 05:30 Baso % 1.0 % (0.2-1.0) 09/27/16 05:30 Neut # 3.3 x10^3/uL (2.2-4.8) 09/27/16 05:30 Lymph # 1.8 X10^3/uL (1.3-2.9) 09/27/16 05:30 [place] # 0.5 x10^3/uL (0.3-0.8) 09/27/16 05:30 Eos # 0.3 x10^3/uL (0.0-0.2) H 09/27/16 05:30 Baso # 0.1 X10^3/uL (0.0-0.1) 09/27/16 05:30 Absolute Nucleated RBC 0.0 /100WBC 09/27/16 05:30 Sodium 144 mmol/L (136-145) 09/27/16 05:30 Corrected Sodium TNP 09/27/16 05:30 Potassium 3.3 mmol/L (3.5-5.1) L 09/27/16 05:30 Chloride 106 mmol/L (98-107) 09/27/16 05:30 Carbon Dioxide 29.4 mmol/L (21-32) 09/27/16 05:30 BUN 14 mg/dL (7-18) 09/27/16 05:30 Creatinine 0.65 mg/dL (0.55-1.02) 09/27/16 05:30 Est GFR (MDRD) Af Amer > 60 (>60) 09/27/16 05:30 Est GFR (MDRD) Non-Af > 60 (>60) 09/27/16 05:30 Glucose 110 mg/dL (65-99) H 09/27/16 05:30 Calcium 8.1 mg/dL (8.5-10.1) L 09/27/16 05:30 Corrected Calcium 9.1 mg/dL (8.5-10.1) 09/27/16 05:30 Magnesium 1.8 mg/dL (1.7-2.9) 09/27/16 05:30 Total Bilirubin 0.30 mg/dL (0.2-1.0) 09/27/16 05:30 AST 17 Units/L (15-37) 09/27/16 05:30 ALT 20 Units/L (12-78) 09/27/16 05:30 Alkaline Phosphatase 47 Units/L (46-116) 09/27/16 05:30 Total Protein 5.2 g/dL (6.4-8.2) L 09/27/16 05:30 Albumin 2.7 g/dL (3.4-5.0) L 09/27/16 05:30 Globulin 2.5 g/dL (2.5-4.5) 09/27/16 05:30 Albumin/Globulin Ratio 1.1 Ratio (1.1-2.1) 09/27/16 05:30 Specimen Type Clean catch urine 09/25/16 22:50 Urine Color Yellow (YELLOW) 09/25/16 22:50 Urine Appearance Clear (CLEAR) 09/25/16 22:50 Urine pH 6.5 (5.0 - 8.0) 09/25/16 22:50 Ur Specific [place] 1.015 (1.000-1.030) 09/25/16 22:50 Urine Protein Negative (NEGATIVE) 09/25/16 22:50 Urine Glucose (UA) Negative (NEGATIVE) 09/25/16 22:50 Urine Ketones Negative (NEGATIVE) 09/25/16 22:50 Urine Occult Blood Negative (NEGATIVE) 09/25/16 22:50 Urine Nitrite Negative (NEGATIVE) 09/25/16 22:50 Urine Bilirubin Negative (NEGATIVE) 09/25/16 22:50 Urine Urobilinogen Normal (NORMAL) 09/25/16 22:50 Ur Leukocyte Esterase Negative (NEGATIVE) 09/25/16 22:50 Urine RBC 0-3 /HPF (NEGATIVE) 09/25/16 22:50 Urine WBC 0-3 /HPF (NEGATIVE) 09/25/16 22:50 Ur Squamous Epith Cells Rare /HPF (NEGATIVE) 09/25/16 22:50 Urine Bacteria Negative /HPF (NEGATIVE) 09/25/16 22:50 Hyaline Casts Few /LPF (NEGATIVE) 09/24/16 23:08 Ur Culture Indicated? No/not indicated 09/25/16 22:50 - Plan (1) Altered mental status, unspecified Status: Acute Qualifiers: Altered mental status type: disorientation Coma depth: C Coma timing: C Qualified Code(s): R41.0 - Disorientation, unspecified Plan: CONTINUE TO MONITOR ON TELEMETRY, MONITOR NEURO STATUS. (2) New onset seizure Status: Acute Plan: CONTINUE DEPAKOTE 250MG BID, MONITOR. (3) Alzheimer's dementia Status: Chronic Qualifiers: Alzheimer's disease onset: late-onset Dementia behavioral disturbance: with behavioral disturbance Qualified Code(s): G30.1 - Alzheimer's disease with late onset; F02.81 - Dementia in other diseases classified elsewhere with behavioral disturbance Plan: CONTINUE TO MONITOR. (4) GERD (gastroesophageal reflux disease) Status: Chronic Qualifiers: Esophagitis presence: esophagitis presence not specified Qualified Code(s) : K21.9 - Gastro-esophageal reflux disease without esophagitis
[2016-09-27] MEDS: DETROL LA 4 MG CAP EXT REL PO SCH (22:45)
[2016-09-27] MEDS: ZANAFLEX PO SCH (22:45)
[2016-09-28] MEDS: LR 1000 ML IV 1,000 ML IV SCH ×3 (03:10→20:21)
[2016-09-28 06:27] LABS: BASOPHILS # (AUTO) 0.1 X10^3/uL (0.0-0.1); BASOPHILS % (AUTO) 0.9 % (0.2-1.0); EOSINOPHILS # (AUTO) 0.4 x10^3/uL (0.0-0.2); EOSINOPHILS % (AUTO) 5.6 % (0.9-2.9); HEMATOCRIT 31.7 % (36.0-47.0); HEMOGLOBIN 11.1 g/dL (12.0-16.0); LYMPHOCYTES # (AUTO) 1.8 X10^3/uL (1.3-2.9); LYMPHOCYTES % (AUTO) 27.7 % (21.0-51.0); MEAN CORPUSCULAR HEMOGLOBIN 32.2 pg (27.0-34.0); MEAN CORPUSCULAR VOLUME 91.9 fL (80.0-100.0); MEAN PLATELET VOLUME 8.3 fL (7.4-11.0); MONOCYTES # (AUTO) 0.6 x10^3/uL (0.3-0.8); MONOCYTES % (AUTO) 8.9 % (0.0-13.0); NEUTROPHILS # (AUTO) 3.6 x10^3/uL (2.2-4.8); NEUTROPHILS % (AUTO) 56.9 % (42.0-75.0); PLATELET COUNT 218 X10^3/uL (150.0-450.0); RED BLOOD COUNT 3.45 X10^6/uL (3.5-5.4); RED CELL DISTRIBUTION WIDTH 12.7 % (11.6-16.5); WHITE BLOOD COUNT 6.4 X10^3/uL (3.6-10.0)
[2016-09-28 06:40] LABS: ALANINE AMINOTRANSFERASE 21 Units/L (12-78); ALKALINE PHOSPHATASE 44 Units/L (46-116); ASPARTATE AMINO TRANSFERASE 17 Units/L (15-37); BLOOD UREA NITROGEN 8 mg/dL (7-18); CALCIUM 8.4 mg/dL (8.5-10.1); CARBON DIOXIDE 27.4 mmol/L (21-32); CHLORIDE 103 mmol/L (98-107); COR CA(FOR HYPOALB) 9.2 mg/dL (8.5-10.1); CREATININE 0.55 mg/dL (0.55-1.02); GLUCOSE 90 mg/dL (65-99); SODIUM 139 mmol/L (136-145); TOTAL PROTEIN 5.5 g/dL (6.4-8.2); eGFR BLACK RACES > 60 (>60); eGFR NON BLACK RACES > 60 (>60)
[2016-09-28] MEDS: ALBUMIN HUMAN 25%- 100ML 100 ML IV SCH (08:46)
[2016-09-28] MEDS: PROTONIX INJ 40 MG VIAL IVP SCH (08:46)
[2016-09-28] MEDS: CHLORTHALIDONE PO SCH (08:47)
[2016-09-28] MEDS: DEPAKOTE SPRINKLE PO SCH ×2 (08:47→20:33)
[2016-09-28] MEDS: LYRICA CAP 75 MG PO SCH ×2 (08:47→20:33)
[2016-09-28] MEDS: MOBIC TAB 15 MG PO SCH (08:47)
[2016-09-28 09:49] LABS: CKMB % 1.2 % (<4); CREATINE KINASE 104 Units/L (26-192); CREATINE KINASE MB 1.2 ng/mL (0-4.0); TROPONIN I < 0.02 ng/mL (0-1.5)
--- NOTE | 2016-09-28 11:14 | PCM.PROG ---
Progress Note - Progress Note for Day of Date: 09/28/16 - Subjective Subjective: PATIENT IS SITTING UP IN BED, ALERT, ORIENTED. SON AT BEDSIDE. INTERMITTENT CONFUSION IS NOTED; HOWEVER; HAS IMPROVED. VALIUM WAS DISCONTINUED YESTERDAY AND PATIENT HAS DONE WELL. PATIENT REPORTS SOME MIDSTERNAL CHEST PRESSURE THIS MORNING WITHOUT SHORNTESS OF BREATH. SHE CONTINUES ON DEPAKOTE BID FOR NEW ONSET SEIZURES. CBC WNL EXCEPT: H/H 11.1/ 31.7. CMP WNL EXCEPT: CALCIUM 8.4, TOT PROTEIN 5.5, ALBUMIN 3.0. WE WILL OBTAIN SERIAL CARDIAC ENZYMES AND EKG'S, CONTINUE CURRENT TREATMENT, CONTINUE TO MONITOR ON TELEMETRY, AND FOLLOW UP IN AM WITH LABS. WE WILL PLAN FOR DISCHARGE IN AM. PROVIDING PATIENT IS STABLE. - Past Medical Family Social History Past Med/Fam/Surg Hx: No changes since H&P Allergies: Allergies No Known Drug Allergy Allergy (Verified 09/24/16 23:07) - Review of Systems ROS: No change since H&P - Vital Signs and I&O's Vital Signs: Temperature 97.4 F Pulse Rate [Brachial] 88 Respiratory Rate 18 Blood Pressure [Left Arm] 136/73 Blood Pressure [Right Arm] 96/64 O2 Sat by Pulse Oximetry 98 Intake and Output: Intake & Output 09/25/16 09/26/16 09/27/16 09/28/16 11:59 11:59 11:59 11:59 Intake Total 0 100 2349 4061 Output Total 0 2200 1450 3975 Balance 0 -2100 899 86 - Physical Exam Oriented: Not Oriented Eyes: Normal. negative: Blurred Vision, Diplopia, Discharge, Pain, Redness, Photophobia Ear: Normal. negative: Swelling, Ecchymosis, Hemotypanum, Abrasion, Laceration Nose: Normal. negative: Injected, Discharge, Blood Throat: Dry. negative: Tonsillar Hypertrophy, Exudate Respiratory: Normal Cardiovascular: Normal. negative: Murmur, Edema : Normal Auscultation: Bowel Sounds: Normal. negative: Bruit Palpation: Normal. negative: Spleen Enlarged, Liver Enlarged, Mass Pulsatile Tenderness: Normal. negative: Rebound, Guarding, Rigidity Skin: Normal. negative: Diaphoresis, Wound, Bruising, Ecchymosis Musculoskeletal: Instability Psychiatric: Other (Intermittent Confusion) Mood Description: Calm Affect: Normal Speech Pattern: Clear, Appropriate - Laboratory and Diagnostics Result Diagrams: 09/28/16 05:35 09/28/16 05:35 Labs: Laboratory WBC 6.4 X10^3/uL (3.6-10.0) 09/28/16 05:35 RBC 3.45 X10^6/uL (3.5-5.4) L 09/28/16 05:35 Hgb 11.1 g/dL (12.0-16.0) L 09/28/16 05:35 Hct 31.7 % (36.0-47.0) L 09/28/16 05:35 MCV 91.9 fL (80.0-100.0) 09/28/16 05:35 MCH 32.2 pg (27.0-34.0) 09/28/16 05:35 MCHC 35.0 g/dL (33.0-35.0) 09/28/16 05:35 RDW 12.7 % (11.6-16.5) 09/28/16 05:35 Plt Count 218 X10^3/uL (150.0-450.0) 09/28/16 05:35 MPV 8.3 fL (7.4-11.0) 09/28/16 05:35 Neut % 56.9 % (42.0-75.0) 09/28/16 05:35 Lymph % 27.7 % (21.0-51.0) 09/28/16 05:35 [place] % 8.9 % (0.0-13.0) 09/28/16 05:35 Eos % 5.6 % (0.9-2.9) H 09/28/16 05:35 Baso % 0.9 % (0.2-1.0) 09/28/16 05:35 Neut # 3.6 x10^3/uL (2.2-4.8) 09/28/16 05:35 Lymph # 1.8 X10^3/uL (1.3-2.9) 09/28/16 05:35 [place] # 0.6 x10^3/uL (0.3-0.8) 09/28/16 05:35 Eos # 0.4 x10^3/uL (0.0-0.2) H 09/28/16 05:35 Baso # 0.1 X10^3/uL (0.0-0.1) 09/28/16 05:35 Absolute Nucleated RBC 0.1 /100WBC 09/28/16 05:35 Sodium 139 mmol/L (136-145) 09/28/16 05:35 Corrected Sodium TNP 09/28/16 05:35 Potassium 3.7 mmol/L (3.5-5.1) 09/28/16 05:35 Chloride 103 mmol/L (98-107) 09/28/16 05:35 Carbon Dioxide 27.4 mmol/L (21-32) 09/28/16 05:35 BUN 8 mg/dL (7-18) 09/28/16 05:35 Creatinine 0.55 mg/dL (0.55-1.02) 09/28/16 05:35 Est GFR (MDRD) Af Amer > 60 (>60) 09/28/16 05:35 Est GFR (MDRD) Non-Af > 60 (>60) 09/28/16 05:35 Glucose 90 mg/dL (65-99) 09/28/16 05:35 Calcium 8.4 mg/dL (8.5-10.1) L 09/28/16 05:35 Corrected Calcium 9.2 mg/dL (8.5-10.1) 09/28/16 05:35 Magnesium 1.8 mg/dL (1.7-2.9) 09/27/16 05:30 Total Bilirubin 0.40 mg/dL (0.2-1.0) 09/28/16 05:35 AST 17 Units/L (15-37) 09/28/16 05:35 ALT 21 Units/L (12-78) 09/28/16 05:35 Alkaline Phosphatase 44 Units/L (46-116) L 09/28/16 05:35 Creatine Kinase 104 Units/L (26-192) 09/28/16 09:20 CK-MB (CK-2) 1.2 ng/mL (0-4.0) 09/28/16 09:20 CK/CKMB % Calc 1.2 % (<4) 09/28/16 09:20 Troponin I < 0.02 ng/mL (0-1.5) 09/28/16 09:20 Total Protein 5.5 g/dL (6.4-8.2) L 09/28/16 05:35 Albumin 3.0 g/dL (3.4-5.0) L 09/28/16 05:35 Globulin 2.5 g/dL (2.5-4.5) 09/28/16 05:35 Albumin/Globulin Ratio 1.2 Ratio (1.1-2.1) 09/28/16 05:35 Specimen Type Clean catch urine 09/25/16 22:50 Urine Color Yellow (YELLOW) 09/25/16 22:50 Urine Appearance Clear (CLEAR) 09/25/16 22:50 Urine pH 6.5 (5.0 - 8.0) 09/25/16 22:50 Ur Specific [place] 1.015 (1.000-1.030) 09/25/16 22:50 Urine Protein Negative (NEGATIVE) 09/25/16 22:50 Urine Glucose (UA) Negative (NEGATIVE) 09/25/16 22:50 Urine Ketones Negative (NEGATIVE) 09/25/16 22:50 Urine Occult Blood Negative (NEGATIVE) 09/25/16 22:50 Urine Nitrite Negative (NEGATIVE) 09/25/16 22:50 Urine Bilirubin Negative (NEGATIVE) 09/25/16 22:50 Urine Urobilinogen Normal (NORMAL) 09/25/16 22:50 Ur Leukocyte Esterase Negative (NEGATIVE) 09/25/16 22:50 Urine RBC 0-3 /HPF (NEGATIVE) 09/25/16 22:50 Urine WBC 0-3 /HPF (NEGATIVE) 09/25/16 22:50 Ur Squamous Epith Cells Rare /HPF (NEGATIVE) 09/25/16 22:50 Urine Bacteria Negative /HPF (NEGATIVE) 09/25/16 22:50 Hyaline Casts Few /LPF (NEGATIVE) 09/24/16 23:08 Ur Culture Indicated? No/not indicated 09/25/16 22:50 - Plan (1) Chest pain Status: Acute Qualifiers: Chest pain type: precordial pain Ischemic chest pain type: I Qualified Code(s): R07.2 - Precordial pain Plan: OBTAIN SERIAL CARDIAC ENZYMES, EKG'S, CONTINUE TO MONITOR ON TELEMETRY. (2) Altered mental status, unspecified Status: Acute Qualifiers: Altered mental status type: disorientation Coma depth: C Coma timing: C Qualified Code(s): R41.0 - Disorientation, unspecified Plan: CONTINUE TO MONITOR ON TELEMETRY, MONITOR NEURO STATUS. (3) New onset seizure Status: Acute Plan: CONTINUE DEPAKOTE 250MG BID, MONITOR. (4) Alzheimer's dementia Status: Chronic Qualifiers: Alzheimer's disease onset: late-onset Dementia behavioral disturbance: with behavioral disturbance Qualified Code(s): G30.1 - Alzheimer's disease with late onset; F02.81 - Dementia in other diseases classified elsewhere with behavioral disturbance Plan: CONTINUE TO MONITOR. (5) GERD (gastroesophageal reflux disease) Status: Chronic Qualifiers: Esophagitis presence: esophagitis presence not specified Qualified Code(s) : K21.9 - Gastro-esophageal reflux disease without esophagitis
[2016-09-28 13:17] LABS: CKMB % 1.1 % (<4); CREATINE KINASE 111 Units/L (26-192); CREATINE KINASE MB 1.2 ng/mL (0-4.0); TROPONIN I < 0.02 ng/mL (0-1.5)
[2016-09-28 17:49] LABS: CKMB % 1.1 % (<4); CREATINE KINASE 99 Units/L (26-192); CREATINE KINASE MB 1.1 ng/mL (0-4.0); TROPONIN I < 0.02 ng/mL (0-1.5)
[2016-09-28] MEDS: DETROL LA 4 MG CAP EXT REL PO SCH (20:33)
[2016-09-28] MEDS: ZANAFLEX PO SCH (20:33)
[2016-09-29 06:14] LABS: BASOPHILS # (AUTO) 0.1 X10^3/uL (0.0-0.1); BASOPHILS % (AUTO) 0.8 % (0.2-1.0); EOSINOPHILS # (AUTO) 0.4 x10^3/uL (0.0-0.2); EOSINOPHILS % (AUTO) 6.5 % (0.9-2.9); HEMATOCRIT 34.6 % (36.0-47.0); HEMOGLOBIN 11.9 g/dL (12.0-16.0); LYMPHOCYTES # (AUTO) 1.6 X10^3/uL (1.3-2.9); LYMPHOCYTES % (AUTO) 24.9 % (21.0-51.0); MEAN CORPUSCULAR HEMOGLOBIN 31.8 pg (27.0-34.0); MEAN CORPUSCULAR HGB CONC 34.5 g/dL (33.0-35.0); MEAN PLATELET VOLUME 8.4 fL (7.4-11.0); MONOCYTES # (AUTO) 0.6 x10^3/uL (0.3-0.8); MONOCYTES % (AUTO) 9.6 % (0.0-13.0); NEUTROPHILS # (AUTO) 3.8 x10^3/uL (2.2-4.8); NEUTROPHILS % (AUTO) 58.2 % (42.0-75.0); PLATELET COUNT 235 X10^3/uL (150.0-450.0); RED BLOOD COUNT 3.76 X10^6/uL (3.5-5.4); RED CELL DISTRIBUTION WIDTH 12.5 % (11.6-16.5); WHITE BLOOD COUNT 6.6 X10^3/uL (3.6-10.0)
[2016-09-29 06:29] LABS: ALANINE AMINOTRANSFERASE 21 Units/L (12-78); ALBUMIN 3.7 g/dL (3.4-5.0); ALKALINE PHOSPHATASE 49 Units/L (46-116); ASPARTATE AMINO TRANSFERASE 15 Units/L (15-37); BLOOD UREA NITROGEN 12 mg/dL (7-18); CARBON DIOXIDE 28.7 mmol/L (21-32); CHLORIDE 100 mmol/L (98-107); CREATININE 0.63 mg/dL (0.55-1.02); GLUCOSE 91 mg/dL (65-99); SODIUM 136 mmol/L (136-145); TOTAL PROTEIN 6.3 g/dL (6.4-8.2); eGFR BLACK RACES > 60 (>60); eGFR NON BLACK RACES > 60 (>60)
[2016-09-29] MEDS: DEPAKOTE SPRINKLE PO SCH (08:49)
[2016-09-29] MEDS: PROTONIX INJ 40 MG VIAL IVP SCH (08:49)
[2016-09-29] MEDS: MOBIC TAB 15 MG PO SCH (08:49)
[2016-09-29] MEDS: LYRICA CAP 75 MG PO SCH (08:49)
[2016-09-29] MEDS: CHLORTHALIDONE PO SCH (08:49)
[2016-09-29] MEDS: ALBUMIN HUMAN 25%- 100ML 100 ML IV SCH (08:49)
[2016-09-29] MEDS: LR 1000 ML IV 1,000 ML IV SCH (08:50)
[2016-09-29] MEDS ORDERED: BUTT CREAM (COMPOUND) ONE (10:36)
--- NOTE | 2016-09-29 11:02 | DR.CARTERD ---
- Discharge Summary for: Discharge Summary for Date of:: 09/29/16 - Admission Date Date of Admission: 09/25/16 - Admission Diagnoses Admission Diagnosis: (1) Altered mental status, unspecified (2) New onset seizure (3) Alzheimer's dementia (4) GERD (gastroesophageal reflux disease) - Discharge Date Discharge Date: 09/29/16 - Discharge Diagnoses Discharge Diagnosis: (1) Chest pain (2) Altered mental status, unspecified (3) New onset seizure (4) Alzheimer's dementia (5) GERD (gastroesophageal reflux disease) - Hospital Course Hospital Course: DAY ONE OF HOSPITAL STAY, THIS 86 YEAR OLD FEMALE, IS A PATIENT OF OURS. SHE PRESENTED TO THE EMERGENCY ROOM, VIA EMS, WITH REPORTS OF A FALL AT HOME AND ALTERED MENTAL STATUS. PATIENT WAS DIAGNOSED WITH ALZHEIMERS DEMENTIA APPROXIMATELY TWO YEARS AGO. DEMENTIA HAD NOT BEEN SEVERE AND PATIENT WAS MOST OF THE TIME AFFABLE WITH INTERMITTENT CONFUSION. PATIENT WAS NOTED WITH AN UNSTEADY GAIT. WAS UNSURE IF PATIENT HIT HER HEAD WITH FALL. PATIENT' S AFFECT WAS NOTED TO CHANGE DRASTICALLY FROM LAUGHING TO COMBATIVE WITHIN MINUTES. REPORTED THIS WAS UNLIKE PATIENT'S NORMAL BEHAVIOR. PATIENT WAS UNABLE TO ANSWER QUESTIONS. PATIENT MADE EYE CONTACT WHEN SPOKEN TO AND ATTEMPTED TO SPEAK BUT SPEECH WAS GARBLED AND UNCLEAR. LABS, CT OBTAINED. CBC WNL EXCEPT: HGB 11.9. CMP WNL EXCEPT: BUN/CREAT 26/1.21, GFR 45, GLUCOSE 120. URINALYSIS WNL. 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 EKG: SINUS RHYTHM, RATE 79. WE ADMITTED PATIENT FOR FURTHER TREATMENT AND EVALUATION. EARLY THAT MORNING, PATIENT HAD A SEIZURE LASTING APPROXIMATELY 45 SECONDS WITH JERKING OF HEAD AND ARMS. PATIENT WAS UNRESPONSIVE TO VERBAL AND TACTILE STIMULI AFTER SEIZURE. WE PLANNED FOR AN MRI BRAIN SINCE PATIENT HAD NO HISTORY OF SEIZURES. PATIENT WAS TRANSFERRED TO ICU FOR CLOSE MONITORING. DAY TWO OF HOSPITAL STAY, PATIENT RESTED IN BED, CALMLY, WITH AND SON AT BEDSIDE. PATIENT WAS DROWSY. PATIENT WAS COMBATIVE THE DAY BEFORE ALONG WITH CONFUSION. SHE WAS PLACED ON VALIUM 5MG IV TID FOR AGITATION. RESTRAINTS WERE UTILIZED FOR PATIENT'S PROTECTION. SHE WAS ALSO STARTED ON DEPAKOTE BID FOR NEW ONSET SEIZURES. AN MRI OF BRAIN WAS OBTAINED AND REPORTED: NO EVIDENCE OF ACUTE INTRACRANIAL ABNORMALITY; NONSPECIFIC WHITE MATTER CHANGE AND VOLUME LOSS. CBC WNL EXCEPT: H/H 11.4/33.2. CMP WNL EXCEPT: POTASSIUM 2.9, CALCIUM 8.3, MAGNESIUM 1.6, TOT PROTEIN 5.5, ALBUMIN 3.0. WE REMOVED RESTRAINTS AND DECREASED VALIUM TO 2.5MG IV Q8H NEEDED. WE CONTINUED TO MONITOR ON TELEMETRY. DAY THREE OF HOSPITAL STAY, PATIENT RESTED IN BED, CALMLY, WITH . PATIENT WAS DROWSY. STAFF REPORTED PATIENT HAD AGITATION THROUGH THE NIGHT AND VALIUM 2.5MG IV WAS ADMINISTERED WITH A CATATONIC RESPONSE. WE DISCONTINUED VALIUM. RESTRAINTS WERE REMOVED AND PATIENT TOLERATED WELL. SHE CONTINUED ON DEPAKOTE BID FOR NEW ONSET SEIZURES. CBC WNL EXCEPT: H/H 11.2/32.6. CMP WNL EXCEPT: POTASSIUM 3.3, CALCIUM 8.1, TOT PROTEIN 5.2, ALBUMIN 2.7. WE STARTED ALBUMIN AND CONTINUED TO MONITOR ON TELEMETRY. DAY FOUR OF HOSPITAL STAY, PATIENT WAS SITTING UP IN BED, ALERT, ORIENTED. SON AT BEDSIDE. INTERMITTENT CONFUSION WAS NOTED; HOWEVER; HAD IMPROVED. VALIUM WAS DISCONTINUED YESTERDAY AND PATIENT HAD DONE WELL. PATIENT REPORTED SOME MIDSTERNAL CHEST PRESSURE THIS DAY WITHOUT SHORTNESS OF BREATH. SHE CONTINUED ON DEPAKOTE BID FOR NEW ONSET SEIZURES. CBC WNL EXCEPT: H/H 11.1/31.7. CMP WNL EXCEPT: CALCIUM 8.4, TOT PROTEIN 5.5, ALBUMIN 3.0. WE OBTAINED SERIAL CARDIAC ENZYMES AND EKG'S, CONTINUED TREATMENT, AND CONTINUED TO MONITOR ON TELEMETRY. DAY FIVE OF HOSPITAL STAY, PATIENT DENIED CHEST PAIN. PATIENT HAD NO FURTHER SEIZURE ACTIVITY SINCE STARTING DEPAKOTE. AND SON AT BEDSIDE AND REPORTED PATIENT WAS RESTLESS THROUGH THE NIGHT. PATIENT AFEBRILE. LABS WNL. CARDIAC ENZYMES AND EKG'S WNL. WE PLANNED FOR DISCHARGE. INSTRUCTIONS FOR MEDICATIONS AND FOLLOW UP WERE GIVEN TO PATIENT AND FAMILY, BOTH VOICED UNDERSTANDING. PATIENT WILL BE STARTED ON KLONOPIN AT BEDTIME, CIPRO BID, AND CONTINUE DEPAKOTE. PATIENT WAS DISCHARGED HOME IN STABLE CONDITION WITH FAMILY. - Discharge Medications Discharge Medications: Chlorthalidone [HYGROTON 25 mg tab *] 1 tab PO DAILY 09/24/16 [History] Meloxicam 1 tab PO DAILY 09/24/16 [History] Mirabegron [Myrbetriq] 1 tab PO HS 09/24/16 [History] Pantoprazole Sodium 1 tab PO DAILY 09/24/16 [History] Pregabalin 1 cap PO BID 09/24/16 [History] Solifenacin Succinate [Vesicare] 1 tab PO HS 09/24/16 [History] Tizanidine HCl 1 tab PO HS 09/24/16 [History] Ciprofloxacin HCl [Cipro] 250 mg PO BID #6 tab 09/29/16 [Rx] Clonazepam [Klonopin Tab 0.5 mg] 0.5 mg PO HS #30 tab 09/29/16 [Rx] Divalproex Sodium [DEPAKOTE SPRINKLE CAP 125 MG Generic *] 250 mg PO BID #60 cap 09/29/16 [Rx] - Discharge Disposition Discharge Disposition: PATIENT IS TO FOLLOW UP IN OUR OFFICE IN ONE WEEK.
[2016-09-29] MEDS ORDERED: BUTT CREAM (COMPOUND) TOP PRN (12:52)
[2016-09-29 13:38] VITALS: BP 131/49
== END 2016-09-29 13:15 | disposition home health service (06) | DRG 948 ==
LOC: ER 22:52 → MED/SURG 09-25 00:25 → ICU 09-25 06:30 → OBSVTOIN 09-27 08:00
PROVIDERS: ADMIT Internal Medicine; ATTEND Internal Medicine
DX: R41.82 Altered mental status, unspecified (principal); G40.89 Other seizures; F02.81 Dementia in other diseases classified elsewhere, unspecified severity, with behavioral disturbance; I10 Essential (primary) hypertension; R26.81 Unsteadiness on feet; G30.1 Alzheimer's disease with late onset; K21.9 Gastro-esophageal reflux disease without esophagitis; R47.89 Other speech disturbances; R07.2 Precordial pain; R26.89 Other abnormalities of gait and mobility; W18.39XA Other fall on same level, initial encounter; Y92.098 Other place in other non-institutional residence as the place of occurrence of the external cause; Z78.1 Physical restraint status; R48.8 Other symbolic dysfunctions
CPT/HCPCS: 36415; 51701; 70450; 70553; 80053; 81001; 82550; 82553; 83735; 84132; 84484; 85025; 92523; 93005; 93010; 96365; 99284; A4222; C9113; P9047; G0378; J3360; J3480; J7120

== ENCOUNTER 2016-12-18 09:25 | Observation (INO) | payer OTHER, BC ==
[2016-12-18] MEDS ORDERED: MORPHINE SULFATE INJ 2 MG IM ONE (09:33)
--- NOTE | 2016-12-18 09:34 | DR.EXTPAIN ---
HPI - Time seen Time seen: 09:30 - Complaint/Symptoms Chief Complaint Doctor Comments: Patient admits to injuring right foot/ankle today while at home. Denies fall. director of donor relations states that paitient is in good health. - Source History Provided: Friend PMH - PMH Past Medical History: Alzheimers, Arthritis, Dementia, Hypertension, Kidney Stones Past Surgical History: Yes Surgical History: Cholecystectomy - Family History Family Medical History: Hypertension - Social History Do you use any recreational Drugs:: No ROS - Review of Systems Eyes: No Symptoms Reported ENTM: No Symptoms Reported Respiratoy: No Symptoms Reported Cardiovascular: No Symptoms Reported Gastrointestinal/Abdominal: No Symptoms Reported Genitourinary: No Symptoms Reported Neurological: No Symptoms Reported Musculoskeletal: Ankle, Foot (right swollen) Integumentary: No Symptoms Reported Hematologic/Lymphatic: No Symptoms Reported, See HPI Endocrine: No Symptoms Reported, See HPI Psychiatric: No Symptoms Reported All Other Systems: Reviewed and Negative PE - Vital Signs Vitals: Temperature 97.8 F Pulse Rate 71 Respiratory Rate 20 Blood Pressure [Left Arm] 131/49 Blood Pressure [Right Arm] 96/64 Blood Pressure 134/59 O2 Sat by Pulse Oximetry 100 - General General Appearance: Alert, In No Apparent Distress - Head Head Exam: Normal Inspection, Atraumatic - Eyes Eye exam: Normal Appearance, PERRL, EOMI - ENT ENT Exam: Normal Exam - Neck Neck Exam: Normal Inspection, Full ROM - Chest Chest Inspection: Normal Inspection - Respiratory Respiratory Exam: Normal Lung Sounds Bilat Respiratory Exam: Bilateral Clear to Auscultation - Cardiovascular Cardiovascular Exam: Regular Rate, Normal Rhythm - Abdominal Exam Abdominal Exam: Normal Inspection, Normal Bowel Sounds Abdominal Tenderness: negative: RUQ, RLQ, LUQ, LLQ, Epigastrium, Suprapubic, Diffuse, Mild, Moderate, Severe, Other - Extremities Extremities Exam: Edema (right lower) - Upper Extremities Shoulder Exam: Normal Inspection, Full ROM Arm Exam: Normal Inspection, Full ROM Elbow Exam: Normal Inspection Forearm Exam: Normal Inspection Hand Exam: Normal Inspection Neuromotor Exam: Normal Exam Neurosensory Exam: Normal Exam Hand Tendon Exam: Flexor Digitorium Profundus (Location) - Lower Extremities Hip/Pelvis Exam: Normal Inspection Upper Leg Exam: Normal Inspection Knee Exam: Normal Inspection Lower Leg Exam: Swelling (right lower extremity) Ankle Exam: Tenderness, Swelling Foot/Toe Exam: Normal Inspection Neurovascular/Tendon Exam: Normal Capillary Refill Gait Exam: Unable to bear weight - Back Back Exam: Normal Inspection - Neurological Neurological Exam: Alert, Oriented X3, CN II-XII Intact - Psychiatric Psychiatric Exam: Normal Affect, Normal Mood - Skin Skin Exam: Warm, Dry, Intact Course - Reevaluation 1st: Unchanged - Consultation Called: 10:20 (Dr Whelan agreed to admit patient) ROR - XRAY XRAY Interpreted by: Radiologist (Right lateral malleolus with mild non displaced comminuted fracture/ foot no evidence of racture) - Diagnosis Discharge Problem: Fracture of lateral malleolus of right fibula Qualifiers: Encounter type: initial encounter Fracture type: closed Fracture alignment: nondisplaced Qualified Code(s): S82.64XA - Nondisplaced fracture of lateral malleolus of right fibula, initial encounter for closed fracture - Discharge Plan Condition: Stable - Follow ups/Referrals Follow ups/Referrals: Marshall Whelan [Primary Care Provider] - 3 days - Instructions
[2016-12-18] MEDS ORDERED: MORPHINE SULFATE INJ 2 MG ONE (09:35)
--- NOTE | 2016-12-18 09:50 | RAD ---
HISTORY: Injury, fall, right lateral ankle pain, swelling Study: Right ankle three view Comparison: None Findings: There is a mildly comminuted nondisplaced fracture of the lateral malleolus. The distal tibia is int act as is the tibiotalar joint. No joint effusion or joint erosion is identified. IMPRESSION: Mildly comminuted but nondisplaced fracture of the lateral malleolus Reported By:
--- NOTE | 2016-12-18 10:00 | RAD ---
HISTORY: Fall, right foot and ankle pain and swelling Study: Three-view right foot Comparison: No priors Findings: No evidence of foot fracture or dislocation is seen. There is mild soft tissue swelling overlying th e distal metatarsals. There is incidental spur formation involving the posterior calcaneus. The frac ture of the right distal fibula is again seen. IMPRESSION: No evidence of foot fracture or dislocation. Mild soft tissue swelling is present. The fracture of t he right distal fibula is again seen. Reported By:
[2016-12-18] MEDS ORDERED: ZOFRAN INJ 4 MG VIAL IVP PRN ×2 (10:42→13:25)
[2016-12-18] MEDS ORDERED: MORPHINE SULFATE INJ 2 MG NEB PRN ×2 (10:42→13:25)
[2016-12-18] MEDS: NS 1000 ML 1,000 ML IV SCH (11:40)
[2016-12-18] MEDS ORDERED: VALIUM PO PRN (14:38)
[2016-12-18] MEDS ORDERED: VISTARIL PO PRN (14:38)
[2016-12-18] MEDS ORDERED: KLONOPIN TAB 0.5 MG PO SCH (21:00)
[2016-12-18] MEDS ORDERED: DEPAKOTE SPRINKLE PO SCH (21:00)
[2016-12-18] MEDS ORDERED: MIRABEGRON PO SCH (21:00)
[2016-12-18] MEDS ORDERED: SOLIFENACIN SUCCINATE PO SCH (21:00)
[2016-12-18] MEDS ORDERED: LYRICA CAP 75 MG PO SCH (21:00)
[2016-12-18] MEDS ORDERED: ZANAFLEX PO SCH (21:00)
[2016-12-18] MEDS: DEPAKOTE SPRINKLE PO SCH (21:20)
[2016-12-18] MEDS: KLONOPIN TAB 0.5 MG PO SCH (21:20)
[2016-12-18] MEDS: LYRICA CAP 75 MG PO SCH (21:21)
[2016-12-18] MEDS: MIRABEGRON PO SCH (21:21)
[2016-12-18] MEDS: ZANAFLEX PO SCH (21:21)
[2016-12-18] MEDS: SOLIFENACIN SUCCINATE PO SCH (21:22)
[2016-12-19] MEDS: NS 1000 ML 1,000 ML IV SCH ×2 (05:39→21:01)
[2016-12-19] MEDS ORDERED: MOBIC TAB 15 MG PO SCH (09:00)
[2016-12-19] MEDS ORDERED: CHLORTHALIDONE PO SCH (09:00)
[2016-12-19] MEDS ORDERED: SINGULAIR TAB 10 MG PO SCH (09:00)
[2016-12-19] MEDS: DEPAKOTE SPRINKLE PO SCH ×2 (09:06→20:58)
[2016-12-19] MEDS: SINGULAIR TAB 10 MG PO SCH (09:06)
[2016-12-19] MEDS: MOBIC TAB 15 MG PO SCH (09:06)
[2016-12-19] MEDS: CHLORTHALIDONE PO SCH (09:06)
[2016-12-19] MEDS: LYRICA CAP 75 MG PO SCH ×2 (09:06→20:59)
[2016-12-19 10:36] VITALS: BMI 21.8
[2016-12-19] MEDS ORDERED: ULTRAM PO PRN (13:09)
[2016-12-19 15:27] LABS: BILIRUBIN,URINE NEGATIVE (NEGATIVE); BLOOD/HEMOGLOBIN,URINE NEGATIVE (NEGATIVE); GLUCOSE, URINE NEGATIVE (NEGATIVE); KETONES,URINE NEGATIVE (NEGATIVE); LEUKOCYTE ESTERASE ,URINE NEGATIVE (NEGATIVE); NITRITES,URINE NEGATIVE (NEGATIVE); PROTEIN,URINE NEGATIVE (NEGATIVE); UROBILINOGEN,URINE NORMAL (NORMAL)
[2016-12-19 15:34] LABS: APPEARANCE,URINE CLEAR (CLEAR); COLOR,URINE YELLOW (YELLOW)
[2016-12-19 15:38] LABS: BACTERIA,URINE NEGATIVE /HPF (NEGATIVE); RBC,URINE NEGATIVE /HPF (NEGATIVE); SQUAMOUS EPITHELIAL CELL,UR NEGATIVE /HPF (NEGATIVE)
[2016-12-19 16:08] LABS: BASOPHILS % (AUTO) 0.8 % (0.2-1.0); EOSINOPHILS # (AUTO) 0.3 x10^3/uL (0.0-0.2); EOSINOPHILS % (AUTO) 5.3 % (0.9-2.9); LYMPHOCYTES # (AUTO) 1.9 X10^3/uL (1.3-2.9); LYMPHOCYTES % (AUTO) 38.5 % (21.0-51.0); MEAN CORPUSCULAR HGB CONC 34.4 g/dL (33.0-35.0); MEAN CORPUSCULAR VOLUME 93.2 fL (80.0-100.0); MEAN PLATELET VOLUME 8.5 fL (7.4-11.0); MONOCYTES # (AUTO) 0.4 x10^3/uL (0.3-0.8); MONOCYTES % (AUTO) 7.7 % (0.0-13.0); NEUTROPHILS # (AUTO) 2.3 x10^3/uL (2.2-4.8); NEUTROPHILS % (AUTO) 47.7 % (42.0-75.0); PLATELET COUNT 172 X10^3/uL (150.0-450.0); RED BLOOD COUNT 3.43 X10^6/uL (3.5-5.4); RED CELL DISTRIBUTION WIDTH 13.4 % (11.6-16.5); WHITE BLOOD COUNT 4.9 X10^3/uL (3.6-10.0)
[2016-12-19 16:26] LABS: ALANINE AMINOTRANSFERASE 21 Units/L (12-78); ALBUMIN 2.8 g/dL (3.4-5.0); ALKALINE PHOSPHATASE 45 Units/L (46-116); ASPARTATE AMINO TRANSFERASE 18 Units/L (15-37); BLOOD UREA NITROGEN 21 mg/dL (7-18); CALCIUM 8.2 mg/dL (8.5-10.1); CHLORIDE 110 mmol/L (98-107); COR CA(FOR HYPOALB) 9.2 mg/dL (8.5-10.1); CREATININE 0.61 mg/dL (0.55-1.02); GLUCOSE 79 mg/dL (65-99); SODIUM 146 mmol/L (136-145); TOTAL PROTEIN 5.6 g/dL (6.4-8.2); eGFR BLACK RACES > 60 (>60); eGFR NON BLACK RACES > 60 (>60)
[2016-12-19] MEDS: KLONOPIN TAB 0.5 MG PO SCH (21:00)
[2016-12-19] MEDS: ZANAFLEX PO SCH (21:00)
[2016-12-19] MEDS: MIRABEGRON PO SCH (22:13)
[2016-12-19] MEDS: SOLIFENACIN SUCCINATE PO SCH (22:13)
[2016-12-20] MEDS: NS 1000 ML 1,000 ML IV SCH (05:55)
[2016-12-20] MEDS: DEPAKOTE SPRINKLE PO SCH (09:29)
[2016-12-20] MEDS: MOBIC TAB 15 MG PO SCH (09:29)
[2016-12-20] MEDS: CHLORTHALIDONE PO SCH (09:29)
[2016-12-20] MEDS: SINGULAIR TAB 10 MG PO SCH (09:30)
[2016-12-20] MEDS: LYRICA CAP 75 MG PO SCH (09:30)
[2016-12-20 12:40] VITALS: BP 126/60
== END 2016-12-20 14:35 | disposition home or self-care (01) ==
LOC: ER 09:25 → MED/SURG 13:03 → ER 13:15
PROVIDERS: ADMIT Internal Medicine; ATTEND Internal Medicine
DX: S82.64XA Nondisplaced fracture of lateral malleolus of right fibula, initial encounter for closed fracture (principal); Y92.098 Other place in other non-institutional residence as the place of occurrence of the external cause; X58.XXXA Exposure to other specified factors, initial encounter; Z78.1 Physical restraint status; R94.5 Abnormal results of liver function studies; E87.0 Hyperosmolality and hypernatremia; D64.89 Other specified anemias; F02.80 Dementia in other diseases classified elsewhere, unspecified severity, without behavioral disturbance, psychotic disturbance, mood disturbance, and anxiety; G30.8 Other Alzheimer's disease; I10 Essential (primary) hypertension; M13.89 Other specified arthritis, multiple sites
CPT/HCPCS: 36415; 73610; 73630; 80053; 81001; 85025; 94760; 96365; 96372; 99284; A4222; Q0177; G0378; J2270

== ENCOUNTER 2016-12-20 18:15 | Inpatient (IN) | payer OTHER, BC ==
--- NOTE | 2016-12-20 19:03 | DR.GENAD ---
HPI - PCP Primary Care Physician: ALISON - HPI Comment HPI Comment: PATIENT HAVE HYPERTENSION. NO FEVER. COUGH, NON PRODUCTIVE PRESENT. NO SINUS DRAINAGE. - Complaint/Symptoms Chief Complaint Doctors Comments: HISTORY BELOW. PATIENT IS HAVING CHEST PAIN WHILE IN ED. SHE IS SOB WITH PAIN. Chief Complaint:: PT. WAS DISCHARGED HOME TODAY FROM THE HOSPITAL. SITTER STATES PT. WAS NOT STAYING IN THE BED AND HAD A FALL. NO NEW INJURIES NOTED. PT. HAS A POST OP BOOT TO RIGHT LOWER EXTREMITY. - Nurses notes reviewed Nurses Notes Review: Yes - Source History Provided: Patient, Family Member, EMS, Other - Mode of Arrival Mode of Arrival: EMS - Timing Onset of Chief Complaint: 12/20/16 Came on: Suddenly - Duration Duration: Constant Duration: Hours - Severity Severity: Moderate PMH - PMH Past Medical History: Yes Past Medical History: Alzheimers, Arthritis, Dementia, Hypertension, Kidney Stones Past Surgical History: Yes Surgical History: Cholecystectomy - Family History History of Family Medical Conditions: Yes Family Medical History: Hypertension - Social History Does patient currently use any type of tobacco product: No Have you used tobacco products in the last 12 months: No Type of Tobacco Use: None Does any household member use tobacco: No Alcohol Use: None Do you use any recreational Drugs:: No Lives With: Spouse, Sitter Lives Where: Home - infectious screening In the last 2 months have you had wt loss of >10#?: NO Have you had fever, night sweats or hemotysis?: No Have you traveled outside the country in the last 6 months?: No Isolation: Standard ROS - Review of Systems Constitutional: negative: Chills, Fever Eyes: No Symptoms Reported. negative: Eye Pain, Discharge ENTM: negative: Ear Pain, Nose Discharge, Nose Congestion, Throat Pain Respiratoy: Non-Productive Cough, Short of Breath. negative: Productive Cough, Wheezing, Hemoptysis Cardiovascular: Chest Pain. negative: Edema, Palpitations Gastrointestinal/Abdominal: negative: Abdominal Pain, Constipation, Diarrhea, Nausea, Vomiting Genitourinary: negative: No Symptoms Reported, Hematuria Neurological: negative: Headache Musculoskeletal: Right, Leg Integumentary: Dryness, Other (RECENT RIGHT ANKLE FRACTURE IN WALKING BOAT.) Hematologic/Lymphatic: Easy Bruising Endocrine: No Symptoms Reported All Other Systems: Reviewed and Negative Unable to Obtain Due To: Dementia PE - Vital Signs Vitals: Temperature 98.3 F Pulse Rate 83 Respiratory Rate 16 Blood Pressure [Left Arm] 132/61 Blood Pressure [Right Arm] 126/60 Blood Pressure 127/58 O2 Sat by Pulse Oximetry 96 - General Limitations: No Limitations General Appearance: Alert - Head Head Exam: Normal Inspection - Eyes Eye exam: Normal Appearance - ENT ENT Exam: Normal External Ear Exam TM/Canal Exam: Bilateral Normal Nose Exam: Normal Nose Exam Mouth Exam: Normal Inspection Throat Exam: Normal Inspection - Neck Neck Exam: Trachea Midline - Chest Chest Inspection: Symmetric Chest Wall Rise - Respiratory Respiratory Exam: Normal Lung Sounds Bilat Respiratory Exam: Bilateral Rhonchi, Lower Rhonchi - Cardiovascular Cardiovascular Exam: Regular Rate, Normal Rhythm, Normal Heart Sounds - Abdominal Exam Abdominal Exam: Normal Bowel Sounds, Soft. negative: Tenderness - Extremities Extremities Exam: Tenderness (RECENT RIGHT ANKLE FRACTURE IN WALKING BOAT.) - Back Back Exam: Normal Inspection - Neurologic Neurological Exam: Alert, Oriented X3 - Psychiatric Psychiatric Exam: Agitated - Skin Skin Exam: Erythema MDM - Additional Information Additional Information Obtained From: Family - Differential Diagnosis Differential Diagnosis: CHEST PAIN, PNEUMONIA, IN, CHF Course - Treatment Treatment: SEE ORDERS - Consultation Consultation Comments: DISCUSS PATIENT WITH DR. RAMOS. HE WILL ADMIT PATIENT. - Education/Counseling Education/Counseling: Patient, Family, Education Educated On: Diagnosis ROR - Labs Reviewed Laboratory Results Reviewed?: Yes Result Diagrams: 12/21/16 05:05 12/21/16 05:05 Laboratory: WBC 5.5 X10^3/uL (3.6-10.0) 12/20/16 19:19 RBC 3.77 X10^6/uL (3.5-5.4) 12/20/16 19:19 Hgb 12.0 g/dL (12.0-16.0) 12/20/16 19:19 Hct 34.9 % (36.0-47.0) L 12/20/16 19:19 MCV 92.6 fL (80.0-100.0) 12/20/16 19:19 MCH 31.9 pg (27.0-34.0) 12/20/16 19:19 MCHC 34.5 g/dL (33.0-35.0) 12/20/16 19:19 RDW 13.0 % (11.6-16.5) 12/20/16 19:19 Plt Count 184 X10^3/uL (150.0-450.0) 12/20/16 19:19 MPV 8.3 fL (7.4-11.0) 12/20/16 19:19 Neut % 58.2 % (42.0-75.0) 12/20/16 19:19 Lymph % 27.9 % (21.0-51.0) 12/20/16 19:19 [place] % 9.1 % (0.0-13.0) 12/20/16 19:19 Eos % 3.9 % (0.9-2.9) H 12/20/16 19:19 Baso % 0.9 % (0.2-1.0) 12/20/16 19:19 Neut # 3.2 x10^3/uL (2.2-4.8) 12/20/16 19:19 Lymph # 1.5 X10^3/uL (1.3-2.9) 12/20/16 19:19 [place] # 0.5 x10^3/uL (0.3-0.8) 12/20/16 19:19 Eos # 0.2 x10^3/uL (0.0-0.2) 12/20/16 19:19 Baso # 0.1 X10^3/uL (0.0-0.1) 12/20/16 19:19 Absolute Nucleated RBC 0.0 /100WBC 12/20/16 19:19 Sodium 144 mmol/L (136-145) 12/20/16 19:19 Corrected Sodium TNP 12/20/16 19:19 Potassium 4.0 mmol/L (3.5-5.1) 12/20/16 19:19 Chloride 107 mmol/L (98-107) 12/20/16 19:19 Carbon Dioxide 31.5 mmol/L (21-32) 12/20/16 19:19 BUN 13 mg/dL (7-18) 12/20/16 19:19 Creatinine 0.69 mg/dL (0.55-1.02) 12/20/16 19:19 Est GFR (MDRD) Af Amer > 60 (>60) 12/20/16 19:19 Est GFR (MDRD) Non-Af > 60 (>60) 12/20/16 19:19 Glucose 83 mg/dL (65-99) 12/20/16 19:19 Calcium 8.8 mg/dL (8.5-10.1) 12/20/16 19:19 Corrected Calcium 9.4 mg/dL (8.5-10.1) 12/20/16 19:19 Total Bilirubin 0.50 mg/dL (0.2-1.0) 12/20/16 19:19 AST 27 Units/L (15-37) 12/20/16 19:19 ALT 25 Units/L (12-78) 12/20/16 19:19 Alkaline Phosphatase 54 Units/L (46-116) 12/20/16 19:19 Creatine Kinase 273 Units/L (26-192) H 12/20/16 19:19 CK-MB (CK-2) 2.2 ng/mL (0-4.0) 12/20/16 19:19 CK/CKMB % Calc 0.8 % (<4) 12/20/16 19:19 Troponin I < 0.02 ng/mL (0-1.5) 12/20/16 19:19 Total Protein 6.3 g/dL (6.4-8.2) L 12/20/16 19:19 Albumin 3.2 g/dL (3.4-5.0) L 12/20/16 19:19 Globulin 3.1 g/dL (2.5-4.5) 12/20/16 19:19 Albumin/Globulin Ratio 1.0 Ratio (1.1-2.1) L 12/20/16 19:19 - XRAY XRAY Interpreted by: Radiologist XRAY Findings: REPORT DISCUSS WITH PATIENT AND FAMILY. - EKG Rhythm: NSR (EKG NOTED) - Diagnosis Discharge Problem: Chest pain Qualifiers: Chest pain type: precordial pain Qualified Code(s): R07.2 - Precordial pain - Discharge Plan Disposition: ADMITTED INPATIENT Condition: Stable - Follow ups/Referrals - Instructions
[2016-12-20 19:27] LABS: BASOPHILS # (AUTO) 0.1 X10^3/uL (0.0-0.1); BASOPHILS % (AUTO) 0.9 % (0.2-1.0); EOSINOPHILS # (AUTO) 0.2 x10^3/uL (0.0-0.2); EOSINOPHILS % (AUTO) 3.9 % (0.9-2.9); HEMATOCRIT 34.9 % (36.0-47.0); LYMPHOCYTES # (AUTO) 1.5 X10^3/uL (1.3-2.9); LYMPHOCYTES % (AUTO) 27.9 % (21.0-51.0); MEAN CORPUSCULAR HEMOGLOBIN 31.9 pg (27.0-34.0); MEAN CORPUSCULAR HGB CONC 34.5 g/dL (33.0-35.0); MEAN CORPUSCULAR VOLUME 92.6 fL (80.0-100.0); MEAN PLATELET VOLUME 8.3 fL (7.4-11.0); MONOCYTES # (AUTO) 0.5 x10^3/uL (0.3-0.8); MONOCYTES % (AUTO) 9.1 % (0.0-13.0); NEUTROPHILS # (AUTO) 3.2 x10^3/uL (2.2-4.8); NEUTROPHILS % (AUTO) 58.2 % (42.0-75.0); PLATELET COUNT 184 X10^3/uL (150.0-450.0); RED BLOOD COUNT 3.77 X10^6/uL (3.5-5.4); WHITE BLOOD COUNT 5.5 X10^3/uL (3.6-10.0)
[2016-12-20 19:45] LABS: BLOOD UREA NITROGEN 13 mg/dL (7-18); CALCIUM 8.8 mg/dL (8.5-10.1); CARBON DIOXIDE 31.5 mmol/L (21-32); CHLORIDE 107 mmol/L (98-107); CREATININE 0.69 mg/dL (0.55-1.02); GLUCOSE 83 mg/dL (65-99); SODIUM 144 mmol/L (136-145); TROPONIN I < 0.02 ng/mL (0-1.5); eGFR BLACK RACES > 60 (>60); eGFR NON BLACK RACES > 60 (>60)
[2016-12-20 19:58] LABS: ALANINE AMINOTRANSFERASE 25 Units/L (12-78); ALBUMIN 3.2 g/dL (3.4-5.0); ALKALINE PHOSPHATASE 54 Units/L (46-116); ASPARTATE AMINO TRANSFERASE 27 Units/L (15-37); CKMB % 0.8 % (<4); COR CA(FOR HYPOALB) 9.4 mg/dL (8.5-10.1); CREATINE KINASE 273 Units/L (26-192); CREATINE KINASE MB 2.2 ng/mL (0-4.0); TOTAL PROTEIN 6.3 g/dL (6.4-8.2)
--- NOTE | 2016-12-20 20:27 | CT ---
HISTORY: Head trauma and pain Study: CT brain without contrast Comparison: 09/24/2016 Technique: Multiple axial images of the brain were obtained from the skull base to the vertex without administr ation of IV contrast. Automated dose control was used. Findings: The ventricles are moderately enlarged and there is diffuse mild prominence of the cortical sulci wh ich is unchanged. There is moderate periventricular low density bilaterally which is unchanged. No i ntracranial hemorrhage or edema is seen and there is no extra-axial fluid collection or mass. The cr aniocervical junction and midline structures are unremarkable. No fracture is seen. IMPRESSION: Diffuse moderate atrophy and chronic microischemic changes throughout the deep white matter which is unchanged with no acute abnormality seen. Reported By:
--- NOTE | 2016-12-20 20:41 | RAD ---
EXAM: Chest X-ray INDICATION: Fall COMPARISION: No prior TECHNIQUE: Single view FINDINGS: Chronic lung parenchymal changes are present bilaterally. No focal lung parenchymal abnormality brad ntified. The cardiac silhouette is normal. The mediastinum is normal. The regional skeleton is in tact. IMPRESSION: Chronic lung parenchymal changes are seen bilaterally, non-specific. No acute abnormality. Reported By:
--- NOTE | 2016-12-20 20:44 | RAD ---
HISTORY: Pain Study: AP pelvis Comparison: None Findings: There is mild to moderate joint space narrowing symmetrically in both hips. No fracture dislocation is seen. The bones are osteopenic. The soft tissues are normal. The pelvis is intact. IMPRESSION: Moderate joint space narrowing symmetrically in both hips and diffuse osteopenia with no acute bony abnormality. Reported By:
--- NOTE | 2016-12-20 20:44 | RAD ---
HISTORY: Pain Study: Right ankle series Comparison: 12/18/2016 Findings: The ankle mortise is intact. There is a slightly comminuted fracture along the distal fibula extendi ng inferiorly into the lateral malleolus which is nondisplaced. The tibia is intact. There is mild s oft tissue swelling around the ankle which is less prominent. The bones are osteopenic. IMPRESSION: Nondisplaced distal fibular fracture extending into the lateral malleolus which is [facility] the [facility]. Mild soft tissue swelling around the ankle which is less prominent. Reported By:
[2016-12-20] MEDS: KLONOPIN TAB 0.5 MG PO SCH (23:00)
[2016-12-21 01:30] LABS: CKMB % 0.7 % (<4); CREATINE KINASE 251 Units/L (26-192); CREATINE KINASE MB 1.8 ng/mL (0-4.0); TROPONIN I < 0.02 ng/mL (0-1.5)
[2016-12-21 04:22] VITALS: BMI 20.5
[2016-12-21 05:57] LABS: ALANINE AMINOTRANSFERASE 22 Units/L (12-78); ALKALINE PHOSPHATASE 53 Units/L (46-116); ASPARTATE AMINO TRANSFERASE 24 Units/L (15-37); BLOOD UREA NITROGEN 9 mg/dL (7-18); CALCIUM 8.7 mg/dL (8.5-10.1); CARBON DIOXIDE 29.5 mmol/L (21-32); CHLORIDE 109 mmol/L (98-107); CHOL/HDL RATIO 3.9 (0.0-5.0); CHOLESTEROL 158 mg/dL (0-200); COR CA(FOR HYPOALB) 9.5 mg/dL (8.5-10.1); CREATININE 0.53 mg/dL (0.55-1.02); GLUCOSE 90 mg/dL (65-99); HDL CHOLESTEROL 41 mg/dL (40-60); SODIUM 144 mmol/L (136-145); TOTAL PROTEIN 5.9 g/dL (6.4-8.2); TRIGLYCERIDES 75 mg/dL (0-150); eGFR BLACK RACES > 60 (>60); eGFR NON BLACK RACES > 60 (>60)
[2016-12-21 05:59] LABS: VALPROIC ACID 21.2 ug/mL (50-100)
[2016-12-21 06:02] LABS: CKMB % 0.8 % (<4); CREATINE KINASE 214 Units/L (26-192); CREATINE KINASE MB 1.8 ng/mL (0-4.0); TROPONIN I < 0.02 ng/mL (0-1.5)
[2016-12-21 06:18] LABS: BASOPHILS % (AUTO) 0.7 % (0.2-1.0); EOSINOPHILS # (AUTO) 0.2 x10^3/uL (0.0-0.2); EOSINOPHILS % (AUTO) 4.5 % (0.9-2.9); HEMATOCRIT 32.7 % (36.0-47.0); HEMOGLOBIN 11.6 g/dL (12.0-16.0); LYMPHOCYTES # (AUTO) 1.4 X10^3/uL (1.3-2.9); LYMPHOCYTES % (AUTO) 25.7 % (21.0-51.0); MEAN CORPUSCULAR HEMOGLOBIN 32.4 pg (27.0-34.0); MEAN CORPUSCULAR HGB CONC 35.3 g/dL (33.0-35.0); MEAN CORPUSCULAR VOLUME 91.6 fL (80.0-100.0); MEAN PLATELET VOLUME 8.7 fL (7.4-11.0); MONOCYTES # (AUTO) 0.5 x10^3/uL (0.3-0.8); MONOCYTES % (AUTO) 10.2 % (0.0-13.0); NEUTROPHILS # (AUTO) 3.1 x10^3/uL (2.2-4.8); NEUTROPHILS % (AUTO) 58.9 % (42.0-75.0); PLATELET COUNT 166 X10^3/uL (150.0-450.0); RED BLOOD COUNT 3.57 X10^6/uL (3.5-5.4); RED CELL DISTRIBUTION WIDTH 12.8 % (11.6-16.5); WHITE BLOOD COUNT 5.3 X10^3/uL (3.6-10.0)
[2016-12-21] MEDS ORDERED: K-DUR TAB 20 MEQ PO PRN (06:22)
[2016-12-21] MEDS ORDERED: POTASSIUM CHLORIDE LIQ 20 MEQ UDC PO PRN (06:22)
[2016-12-21] MEDS ORDERED: K-RIDER 10 MEQ/NS 100 ML 10 MEQ/100 ML BAG IV PRN (06:22)
[2016-12-21] MEDS: DEPAKOTE SPRINKLE PO SCH ×2 (08:57→20:13)
[2016-12-21] MEDS: CHLORTHALIDONE PO SCH (08:57)
[2016-12-21] MEDS: SINGULAIR TAB 10 MG PO SCH (08:57)
[2016-12-21] MEDS: LYRICA CAP 75 MG PO SCH ×2 (08:57→20:13)
[2016-12-21] MEDS: MOBIC TAB 15 MG PO SCH (08:57)
--- NOTE | 2016-12-21 10:40 | PCM.PROG ---
Progress Note - Progress Note for Day of Date: 12/21/16 - Subjective Subjective: Patient is a 86yo white female who presented to the hospital she has a non displaced distal fibular fracture extending to the lateral malleolus. This am she is doing well her family is concerned because they are unable to care for her at home, and would like to have chcf placement for therapy. They are also concerned about the stabilizing boot that she has on as it is to large for her and she keeps taking it off. Patient has alzhiemers and dementia. We are goign to work with [facility] to seek [facility] placement. We will also check with [facility] to see if we can have her a cast placed since she keeps taking of her boot. Labs within normal limits with the exception of Hgb 11.6, Hct 32.7, MCHC 35.3, Eos% 4.5, Potassium 3.0, Chloride 109, Creatinine 0.53, Creatinien inanse 214, Total Protein 5.9, Albumin 3.0, Albumin/Globlin Ratio 1.0, LDL Cholesterol 102. - Past Medical Family Social History Past Med/Fam/Surg Hx: No changes since H&P Allergies: Allergies No Known Drug Allergy Allergy (Verified 12/20/16 18:20) - Review of Systems ROS: No change since H&P - Vital Signs and I&O's Vital Signs: Temperature 98.5 F Pulse Rate [Right Radial] 68 Respiratory Rate 15 Blood Pressure [Left Arm] 115/61 O2 Sat by Pulse Oximetry 98 Intake and Output: Intake & Output 12/18/16 12/19/16 12/20/16 12/21/16 11:59 11:59 11:59 11:59 Intake Total 110 Balance 110 - Physical Exam Oriented: Not Oriented Eyes: Normal Ear: Normal Nose: Normal Throat: Normal Respiratory: Normal Cardiovascular: Normal : Normal Auscultation: Bowel Sounds: Normal Palpation: Normal Tenderness: Normal Skin: Normal Musculoskeletal: Normal Psychiatric: Other (confused) Mood Description: Calm Affect: Normal Speech Pattern: Inappropriate - Laboratory and Diagnostics Result Diagrams: 12/21/16 05:05 12/21/16 05:05 Labs: Laboratory WBC 5.3 X10^3/uL (3.6-10.0) 12/21/16 05:05 RBC 3.57 X10^6/uL (3.5-5.4) 12/21/16 05:05 Hgb 11.6 g/dL (12.0-16.0) L 12/21/16 05:05 Hct 32.7 % (36.0-47.0) L 12/21/16 05:05 MCV 91.6 fL (80.0-100.0) 12/21/16 05:05 MCH 32.4 pg (27.0-34.0) 12/21/16 05:05 MCHC 35.3 g/dL (33.0-35.0) H 12/21/16 05:05 RDW 12.8 % (11.6-16.5) 12/21/16 05:05 Plt Count 166 X10^3/uL (150.0-450.0) 12/21/16 05:05 MPV 8.7 fL (7.4-11.0) 12/21/16 05:05 Neut % 58.9 % (42.0-75.0) 12/21/16 05:05 Lymph % 25.7 % (21.0-51.0) 12/21/16 05:05 Jack % 10.2 % (0.0-13.0) 12/21/16 05:05 Eos % 4.5 % (0.9-2.9) H 12/21/16 05:05 Baso % 0.7 % (0.2-1.0) 12/21/16 05:05 Neut # 3.1 x10^3/uL (2.2-4.8) 12/21/16 05:05 Lymph # 1.4 X10^3/uL (1.3-2.9) 12/21/16 05:05 Jack # 0.5 x10^3/uL (0.3-0.8) 12/21/16 05:05 Eos # 0.2 x10^3/uL (0.0-0.2) 12/21/16 05:05 Baso # 0.0 X10^3/uL (0.0-0.1) 12/21/16 05:05 Absolute Nucleated RBC 0.0 /100WBC 12/21/16 05:05 Sodium 144 mmol/L (136-145) 12/21/16 05:05 Corrected Sodium TNP 12/21/16 05:05 Potassium 3.0 mmol/L (3.5-5.1) L* 12/21/16 05:05 Chloride 109 mmol/L (98-107) H 12/21/16 05:05 Carbon Dioxide 29.5 mmol/L (21-32) 12/21/16 05:05 BUN 9 mg/dL (7-18) 12/21/16 05:05 Creatinine 0.53 mg/dL (0.55-1.02) L 12/21/16 05:05 Est GFR (MDRD) Af Amer > 60 (>60) 12/21/16 05:05 Est GFR (MDRD) Non-Af > 60 (>60) 12/21/16 05:05 Glucose 90 mg/dL (65-99) 12/21/16 05:05 Calcium 8.7 mg/dL (8.5-10.1) 12/21/16 05:05 Corrected Calcium 9.5 mg/dL (8.5-10.1) 12/21/16 05:05 Total Bilirubin 0.60 mg/dL (0.2-1.0) 12/21/16 05:05 AST 24 Units/L (15-37) 12/21/16 05:05 ALT 22 Units/L (12-78) 12/21/16 05:05 Alkaline Phosphatase 53 Units/L (46-116) 12/21/16 05:05 Creatine Kinase 214 Units/L (26-192) H 12/21/16 05:05 CK-MB (CK-2) 1.8 ng/mL (0-4.0) 12/21/16 05:05 CK/CKMB % Calc 0.8 % (<4) 12/21/16 05:05 Troponin I < 0.02 ng/mL (0-1.5) 12/21/16 05:05 Total Protein 5.9 g/dL (6.4-8.2) L 12/21/16 05:05 Albumin 3.0 g/dL (3.4-5.0) L 12/21/16 05:05 Globulin 2.9 g/dL (2.5-4.5) 12/21/16 05:05 Albumin/Globulin Ratio 1.0 Ratio (1.1-2.1) L 12/21/16 05:05 Triglycerides 75 mg/dL (0-150) 12/21/16 05:05 Cholesterol 158 mg/dL (0-200) 12/21/16 05:05 LDL Cholesterol, Calc 102 mg/dL (0-100) H 12/21/16 05:05 HDL Cholesterol 41 mg/dL (40-60) 12/21/16 05:05 Cholesterol/HDL Ratio 3.9 (0.0-5.0) 12/21/16 05:05 Valproic Acid 21.2 ug/mL (50-100) L 12/21/16 05:05 - Plan (1) Fracture of lateral malleolus of right fibula Status: Acute Qualifiers: Encounter type: initial encounter Fracture type: closed Open fracture type: O Fracture alignment: nondisplaced Fracture healing: F Qualified Code(s): S82.64XA - Nondisplaced fracture of lateral malleolus of right fibula, initial encounter for closed fracture Plan: speak with [facility] to see if we are able to cast, as well as chcf placement for physical therapy (2) Alzheimer's dementia Status: Chronic Qualifiers: Alzheimer's disease onset: late-onset Dementia behavioral disturbance: with behavioral disturbance Qualified Code(s): G30.1 - Alzheimer's disease with late onset; F02.81 - Dementia in other diseases classified elsewhere with behavioral disturbance Plan: Reoriented as appropriate (3) HTN (hypertension) Status: Chronic Qualifiers: Hypertension type: H Plan: continue home medications, monitor
--- NOTE | 2016-12-21 13:51 | DR.H&P ---
H&P - History & Physical for Day of: H&P Date: 12/20/16 (`) - Chief Complaint Chief Complaint: Hypertension - Allergies Allergies/Adverse Reactions: Allergies Allergy/AdvReac Type Severity Reaction Status Date / Time No Known Drug Allergy Allergy Verified 12/20/16 18:20 - History of Present Illness History of Present Illness: Patient is a 86yo white female who presented to the ER with complaints of hypertension. Patient was discharged from the hospital today with a non displaced distal fibular fracture extending to the lateral malleolus. A boot was placed and is still on today. Patient also fell again today at home. Patient was admitted with diagnosis of chest pain. Patient cardiac enzymes and EKG are normal. Labs are within normal limits with the exception of HCT 34.9, Eos% 3.9, Creatinine Kinase 273, Total Protein 6.3, Albumin 3.2, Albumin/Globulin Ratio 1.0. Ankle Xray shows nondisplaced distal fibular fracture extending to the lateral malleolus which is unchanged in alignment since prior study. Mild soft tissue swelling around the ankle which is less prominent. Head CT shows diffuse moderate atrophy and chronic microischemic changes throughout the deep white matter which is unchanged with no acute abnormality seen. Pelvis Xray shows moderate joint space narrowing symmetrically in both hips and diffuse osteopenia with no acute bony abnormality. Chest Xray Chronic lung parenchymal changes are seen bilaterally, non specific. No acute abnormality. - Past Medical History Past Medical History: Alzheimers, Arthritis, Dementia, Hypertension, Kidney Stones Additional Medical History: Gall Bladder Disease - Past Surgical History Surgical History: Cholecystectomy - Family History Family Medical History: Hypertension - Social History Does patient currently use any type of tobacco product: No Have you used tobacco products in the last 12 months: No Type of Tobacco Use: None Does any household member use tobacco: No Alcohol Use: None Drug Use: None - Review of Systems Constitutional: Weakness Eyes: No Symptoms Reported ENT: No Symptoms Reported Respiratory: No Symptoms Reported Cardiovascular: No Symptoms Reported Gastrointestinal: No Symptoms Reported Genitourinary: No Symptoms Reported Musculoskeletal: Leg Pain Skin: No Symptoms Reported Neurological: No Symptoms Reported - Physical Exam Vital Signs: Temperature 98.5 F Pulse Rate [Right Radial] 68 Respiratory Rate 15 Blood Pressure [Left Arm] 115/61 O2 Sat by Pulse Oximetry 98 Oriented: Not Oriented Eyes: Normal Ear: Normal Nose: Normal Throat: Normal Respiratory: Clear Throughout Cardiovascular: Normal : Normal Auscultation: Bowel Sounds: Normal Palpation: Normal Tenderness: Normal Skin: Normal Musculoskeletal: Ankle (left ankle tenderness and limited ROM due to fracture, immobilization boot in place) Psychiatric: Other (confusion) Mood Description: Calm, Appropriate Affect: Normal Speech Pattern: Clear, Appropriate - Assessment/Plan (1) Fracture of lateral malleolus of right fibula Qualifiers: Encounter type: initial encounter Fracture type: closed Open fracture type: O Fracture alignment: nondisplaced Fracture healing: F Qualified Code(s): S82.64XA - Nondisplaced fracture of lateral malleolus of right fibula, initial encounter for closed fracture Status: Acute Plan: keep immoblization boot in place (2) Alzheimer's dementia Qualifiers: Alzheimer's disease onset: late-onset Dementia behavioral disturbance: with behavioral disturbance Qualified Code(s): G30.1 - Alzheimer's disease with late onset; F02.81 - Dementia in other diseases classified elsewhere with behavioral disturbance Status: Chronic Plan: Monitor reorient as appropriate (3) HTN (hypertension) Qualifiers: Hypertension type: H Status: Chronic Plan: monitor (4) Chest pain Qualifiers: Chest pain type: precordial pain Ischemic chest pain type: I Qualified Code(s): R07.2 - Precordial pain Status: Acute Plan: continuous cardiac monitoring, serial cardiac enzymes and EKG (5) Arthritis Status: Chronic (6) GERD (gastroesophageal reflux disease) Qualifiers: Esophagitis presence: esophagitis presence not specified Qualified Code(s) : K21.9 - Gastro-esophageal reflux disease without esophagitis Status: Chronic
[2016-12-21] MEDS: KLONOPIN TAB 0.5 MG PO SCH (20:13)
[2016-12-21] MEDS: ZANAFLEX PO SCH (20:13)
[2016-12-21] MEDS ORDERED: KLONOPIN TAB 0.5 MG PO SCH (21:00)
[2016-12-21] MEDS ORDERED: ZANAFLEX PO SCH (21:00)
[2016-12-22 06:01] LABS: BASOPHILS % (AUTO) 0.8 % (0.2-1.0); EOSINOPHILS # (AUTO) 0.3 x10^3/uL (0.0-0.2); HEMATOCRIT 30.8 % (36.0-47.0); HEMOGLOBIN 10.9 g/dL (12.0-16.0); LYMPHOCYTES # (AUTO) 1.7 X10^3/uL (1.3-2.9); LYMPHOCYTES % (AUTO) 33.1 % (21.0-51.0); MEAN CORPUSCULAR HEMOGLOBIN 32.7 pg (27.0-34.0); MEAN CORPUSCULAR HGB CONC 35.4 g/dL (33.0-35.0); MEAN CORPUSCULAR VOLUME 92.6 fL (80.0-100.0); MEAN PLATELET VOLUME 8.9 fL (7.4-11.0); MONOCYTES # (AUTO) 0.5 x10^3/uL (0.3-0.8); MONOCYTES % (AUTO) 9.2 % (0.0-13.0); NEUTROPHILS # (AUTO) 2.7 x10^3/uL (2.2-4.8); NEUTROPHILS % (AUTO) 50.9 % (42.0-75.0); PLATELET COUNT 161 X10^3/uL (150.0-450.0); RED BLOOD COUNT 3.33 X10^6/uL (3.5-5.4); RED CELL DISTRIBUTION WIDTH 12.8 % (11.6-16.5); WHITE BLOOD COUNT 5.3 X10^3/uL (3.6-10.0)
[2016-12-22 06:22] LABS: ERYTHROCYTE SEDIMENTATION RATE 9 MM/HOUR (0-20)
[2016-12-22 06:30] LABS: ALANINE AMINOTRANSFERASE 20 Units/L (12-78); ALBUMIN 2.7 g/dL (3.4-5.0); ALKALINE PHOSPHATASE 53 Units/L (46-116); ASPARTATE AMINO TRANSFERASE 20 Units/L (15-37); BLOOD UREA NITROGEN 17 mg/dL (7-18); CALCIUM 8.6 mg/dL (8.5-10.1); CARBON DIOXIDE 28.4 mmol/L (21-32); CHLORIDE 109 mmol/L (98-107); COR CA(FOR HYPOALB) 9.6 mg/dL (8.5-10.1); CREATININE 0.72 mg/dL (0.55-1.02); GLUCOSE 86 mg/dL (65-99); SODIUM 143 mmol/L (136-145); TOTAL PROTEIN 5.5 g/dL (6.4-8.2); eGFR BLACK RACES > 60 (>60); eGFR NON BLACK RACES > 60 (>60)
[2016-12-22] MEDS: MOBIC TAB 15 MG PO SCH (08:10)
[2016-12-22] MEDS: CHLORTHALIDONE PO SCH (08:10)
[2016-12-22] MEDS: DEPAKOTE SPRINKLE PO SCH ×2 (08:10→23:15)
[2016-12-22] MEDS: SINGULAIR TAB 10 MG PO SCH (08:10)
[2016-12-22] MEDS: LYRICA CAP 75 MG PO SCH ×2 (08:10→23:15)
--- NOTE | 2016-12-22 09:41 | PCM.PROG ---
Progress Note - Progress Note for Day of Date: 12/22/16 - Subjective Subjective: Patient is a 86yo white female who presented to the hospital she has a non displaced distal fibular fracture extending to the lateral malleolus. This am she is doing well her family is concerned because they are unable to care for her at home, and would like to have shelter placement for therapy. They are also concerned about the stabilizing boot that she has on as it is to large for her and she keeps taking it off. Patient has alzhiemers and dementia. We are going to work with case management to seek shelter placement. Patients immobilization boot has been changed to a smaller one. We are still awaiting shelter placement at this time and will continue with her current treatment plan including physical therapy. Labs are within normal limits with the exception RBC 3.33, Hgb 10.9, Hct 30.8, MCHC 35.4, Eos% 6.0, Eos # 0.3, Chloride 109, CRP 4.30, Total 5.5, Albumin 2.7, Albumin/Globulin Ratio 1.0. Vital Signs this am are 97.8, 68, 14, 100% RA, 105/45. - Past Medical Family Social History Past Med/Fam/Surg Hx: No changes since H&P Allergies: Allergies No Known Drug Allergy Allergy (Verified 12/20/16 18:20) - Review of Systems ROS: No change since H&P - Vital Signs and I&O's Vital Signs: Vital Signs this am are 97.8, 68, 14, 100% RA, 105/45 Intake and Output: Intake & Output 12/19/16 12/20/16 12/21/16 12/22/16 11:59 11:59 11:59 11:59 Intake Total 110 710 Balance 110 710 - Physical Exam Oriented: Not Oriented Eyes: Normal Ear: Normal Nose: Normal Throat: Normal Respiratory: Normal Cardiovascular: Normal : Normal Auscultation: Bowel Sounds: Normal Tenderness: Normal Skin: Normal Musculoskeletal: Ankle (left ankle tenderness and limited ROM due to fracture, immobilization boot in place) Psychiatric: Other (confusion) Mood Description: Calm, Appropriate Affect: Normal Speech Pattern: Inappropriate - Laboratory and Diagnostics Result Diagrams: 12/22/16 04:00 12/22/16 04:00 Labs: Laboratory WBC 5.3 X10^3/uL (3.6-10.0) 12/22/16 04:00 RBC 3.33 X10^6/uL (3.5-5.4) L 12/22/16 04:00 Hgb 10.9 g/dL (12.0-16.0) L 12/22/16 04:00 Hct 30.8 % (36.0-47.0) L 12/22/16 04:00 MCV 92.6 fL (80.0-100.0) 12/22/16 04:00 MCH 32.7 pg (27.0-34.0) 12/22/16 04:00 MCHC 35.4 g/dL (33.0-35.0) H 12/22/16 04:00 RDW 12.8 % (11.6-16.5) 12/22/16 04:00 Plt Count 161 X10^3/uL (150.0-450.0) 12/22/16 04:00 MPV 8.9 fL (7.4-11.0) 12/22/16 04:00 Neut % 50.9 % (42.0-75.0) 12/22/16 04:00 Lymph % 33.1 % (21.0-51.0) 12/22/16 04:00 [place] % 9.2 % (0.0-13.0) 12/22/16 04:00 Eos % 6.0 % (0.9-2.9) H 12/22/16 04:00 Baso % 0.8 % (0.2-1.0) 12/22/16 04:00 Neut # 2.7 x10^3/uL (2.2-4.8) 12/22/16 04:00 Lymph # 1.7 X10^3/uL (1.3-2.9) 12/22/16 04:00 [place] # 0.5 x10^3/uL (0.3-0.8) 12/22/16 04:00 Eos # 0.3 x10^3/uL (0.0-0.2) H 12/22/16 04:00 Baso # 0.0 X10^3/uL (0.0-0.1) 12/22/16 04:00 Absolute Nucleated RBC 0.1 /100WBC 12/22/16 04:00 ESR 9 MM/HOUR (0-20) 12/22/16 04:00 Sodium 143 mmol/L (136-145) 12/22/16 04:00 Corrected Sodium TNP 12/22/16 04:00 Potassium 4.0 mmol/L (3.5-5.1) 12/22/16 04:00 Chloride 109 mmol/L (98-107) H 12/22/16 04:00 Carbon Dioxide 28.4 mmol/L (21-32) 12/22/16 04:00 BUN 17 mg/dL (7-18) 12/22/16 04:00 Creatinine 0.72 mg/dL (0.55-1.02) 12/22/16 04:00 Est GFR (MDRD) Af Amer > 60 (>60) 12/22/16 04:00 Est GFR (MDRD) Non-Af > 60 (>60) 12/22/16 04:00 Glucose 86 mg/dL (65-99) 12/22/16 04:00 Calcium 8.6 mg/dL (8.5-10.1) 12/22/16 04:00 Corrected Calcium 9.6 mg/dL (8.5-10.1) 12/22/16 04:00 Total Bilirubin 0.40 mg/dL (0.2-1.0) 12/22/16 04:00 AST 20 Units/L (15-37) 12/22/16 04:00 ALT 20 Units/L (12-78) 12/22/16 04:00 Alkaline Phosphatase 53 Units/L (46-116) 12/22/16 04:00 Creatine Kinase 214 Units/L (26-192) H 12/21/16 05:05 CK-MB (CK-2) 1.8 ng/mL (0-4.0) 12/21/16 05:05 CK/CKMB % Calc 0.8 % (<4) 12/21/16 05:05 Troponin I < 0.02 ng/mL (0-1.5) 12/21/16 05:05 C-Reactive Protein 4.30 mg/L (0-3.0) H 12/22/16 04:00 Total Protein 5.5 g/dL (6.4-8.2) L 12/22/16 04:00 Albumin 2.7 g/dL (3.4-5.0) L 12/22/16 04:00 Globulin 2.8 g/dL (2.5-4.5) 12/22/16 04:00 Albumin/Globulin Ratio 1.0 Ratio (1.1-2.1) L 12/22/16 04:00 Triglycerides 75 mg/dL (0-150) 12/21/16 05:05 Cholesterol 158 mg/dL (0-200) 12/21/16 05:05 LDL Cholesterol, Calc 102 mg/dL (0-100) H 12/21/16 05:05 HDL Cholesterol 41 mg/dL (40-60) 12/21/16 05:05 Cholesterol/HDL Ratio 3.9 (0.0-5.0) 12/21/16 05:05 Valproic Acid 21.2 ug/mL (50-100) L 12/21/16 05:05 - Plan (1) Fracture of lateral malleolus of right fibula Status: Acute Qualifiers: Qualified Code(s): S82.64XA - Nondisplaced fracture of lateral malleolus of right fibula, initial encounter for closed fracture Plan: keep immoblization boot in place (2) Alzheimer's dementia Status: Chronic Qualifiers: Qualified Code(s): G30.1 - Alzheimer's disease with late onset; F02.81 - Dementia in other diseases classified elsewhere with behavioral disturbance Plan: Monitor reorient as appropriate (3) HTN (hypertension) Status: Chronic Plan: monitor (4) Chest pain Status: Acute Qualifiers: Qualified Code(s): R07.2 - Precordial pain Plan: continuous cardiac monitoring, serial cardiac enzymes and EKG (5) Arthritis Status: Chronic (6) GERD (gastroesophageal reflux disease) Status: Chronic Qualifiers: Qualified Code(s): K21.9 - Gastro-esophageal reflux disease without esophagitis
[2016-12-22] MEDS ORDERED: BUTT CREAM (COMPOUND) TOP PRN (13:50)
[2016-12-22] MEDS: KLONOPIN TAB 0.5 MG PO SCH (23:15)
[2016-12-22] MEDS: ZANAFLEX PO SCH (23:15)
[2016-12-23 06:21] LABS: BASOPHILS # (AUTO) 0.1 X10^3/uL (0.0-0.1); BASOPHILS % (AUTO) 1.1 % (0.2-1.0); EOSINOPHILS # (AUTO) 0.3 x10^3/uL (0.0-0.2); EOSINOPHILS % (AUTO) 6.4 % (0.9-2.9); HEMATOCRIT 28.9 % (36.0-47.0); HEMOGLOBIN 10.2 g/dL (12.0-16.0); LYMPHOCYTES # (AUTO) 1.5 X10^3/uL (1.3-2.9); LYMPHOCYTES % (AUTO) 30.7 % (21.0-51.0); MEAN CORPUSCULAR HEMOGLOBIN 32.7 pg (27.0-34.0); MEAN CORPUSCULAR HGB CONC 35.4 g/dL (33.0-35.0); MEAN CORPUSCULAR VOLUME 92.3 fL (80.0-100.0); MEAN PLATELET VOLUME 8.7 fL (7.4-11.0); MONOCYTES # (AUTO) 0.5 x10^3/uL (0.3-0.8); MONOCYTES % (AUTO) 11.3 % (0.0-13.0); NEUTROPHILS # (AUTO) 2.4 x10^3/uL (2.2-4.8); NEUTROPHILS % (AUTO) 50.5 % (42.0-75.0); PLATELET COUNT 170 X10^3/uL (150.0-450.0); RED BLOOD COUNT 3.13 X10^6/uL (3.5-5.4); RED CELL DISTRIBUTION WIDTH 13.1 % (11.6-16.5); WHITE BLOOD COUNT 4.8 X10^3/uL (3.6-10.0)
[2016-12-23 07:16] LABS: ALANINE AMINOTRANSFERASE 21 Units/L (12-78); ALBUMIN 2.6 g/dL (3.4-5.0); ALKALINE PHOSPHATASE 52 Units/L (46-116); ASPARTATE AMINO TRANSFERASE 19 Units/L (15-37); BLOOD UREA NITROGEN 17 mg/dL (7-18); CALCIUM 8.3 mg/dL (8.5-10.1); CARBON DIOXIDE 27.1 mmol/L (21-32); CHLORIDE 108 mmol/L (98-107); COR CA(FOR HYPOALB) 9.4 mg/dL (8.5-10.1); CREATININE 0.67 mg/dL (0.55-1.02); GLUCOSE 83 mg/dL (65-99); SODIUM 143 mmol/L (136-145); TOTAL PROTEIN 5.3 g/dL (6.4-8.2); eGFR BLACK RACES > 60 (>60); eGFR NON BLACK RACES > 60 (>60)
[2016-12-23 07:45] LABS: ERYTHROCYTE SEDIMENTATION RATE 10 MM/HOUR (0-20)
[2016-12-23] MEDS: MOBIC TAB 15 MG PO SCH (09:20)
[2016-12-23] MEDS: CHLORTHALIDONE PO SCH (09:20)
[2016-12-23] MEDS: LYRICA CAP 75 MG PO SCH ×2 (09:20→20:55)
[2016-12-23] MEDS: SINGULAIR TAB 10 MG PO SCH (09:20)
[2016-12-23] MEDS: DEPAKOTE SPRINKLE PO SCH ×2 (09:21→20:55)
[2016-12-23] MEDS: K-LYTE EFFERVESCENT PO PRN (12:43)
--- NOTE | 2016-12-23 13:32 | PCM.PROG ---
Progress Note - Progress Note for Day of Date: 12/23/16 - Subjective Subjective: Patient is an 86yo female admitted with chest pain and non displaced distal fibular fracture extending to the lateral malleolus for which she has an immobilization boot in place for. Patient seems to feeling somewhat better this am she is eating but still having weakness, we are going to continue with physical therapy, Her potassium was low at 3.0 this am were are going to continue her on potassium replacement protocol. Vital signs this am 98.4, 68, 17, 92/37. :abs within normal limits with the exception of RBC 3.13, Hgb 10.2, Hct 28.9, MCHC 35.4, Eos% 6.4, Baso% 1.1, Eos# 0.3, Potassium 3.0, Chloride 108, Calcium 8.3, CRP 3.40, Total Protein 5.3, Albumin 2.6, Albumin/ globulin ratio 1.0. Patient has no complaints this am we will follow up with repeat labs in the am - Past Medical Family Social History Past Med/Fam/Surg Hx: No changes since H&P Allergies: Allergies No Known Drug Allergy Allergy (Verified 12/20/16 18:20) - Review of Systems ROS: No change since H&P - Vital Signs and I&O's Vital Signs: 98.4, 68, 17, 92/37. Intake and Output: Intake & Output 12/21/16 12/22/16 12/23/16 12/24/16 11:59 11:59 11:59 11:59 Intake Total 710 1155 Balance 710 1155 - Physical Exam Oriented: Not Oriented Eyes: Normal Ear: Normal Nose: Normal Throat: Normal Respiratory: Normal Cardiovascular: Normal : Normal Auscultation: Bowel Sounds: Normal Tenderness: Normal Skin: Normal Musculoskeletal: Ankle (left ankle tenderness and limited ROM due to fracture, immobilization boot in place), Instability Psychiatric: Other (confusion) Mood Description: Calm, Appropriate Affect: Normal Speech Pattern: Unclear, Inappropriate - Laboratory and Diagnostics Result Diagrams: 12/23/16 05:00 12/23/16 05:00 Labs: Laboratory WBC 4.8 X10^3/uL (3.6-10.0) 12/23/16 05:00 RBC 3.13 X10^6/uL (3.5-5.4) L 12/23/16 05:00 Hgb 10.2 g/dL (12.0-16.0) L 12/23/16 05:00 Hct 28.9 % (36.0-47.0) L 12/23/16 05:00 MCV 92.3 fL (80.0-100.0) 12/23/16 05:00 MCH 32.7 pg (27.0-34.0) 12/23/16 05:00 MCHC 35.4 g/dL (33.0-35.0) H 12/23/16 05:00 RDW 13.1 % (11.6-16.5) 12/23/16 05:00 Plt Count 170 X10^3/uL (150.0-450.0) 12/23/16 05:00 MPV 8.7 fL (7.4-11.0) 12/23/16 05:00 Neut % 50.5 % (42.0-75.0) 12/23/16 05:00 Lymph % 30.7 % (21.0-51.0) 12/23/16 05:00 [place] % 11.3 % (0.0-13.0) 12/23/16 05:00 Eos % 6.4 % (0.9-2.9) H 12/23/16 05:00 Baso % 1.1 % (0.2-1.0) H 12/23/16 05:00 Neut # 2.4 x10^3/uL (2.2-4.8) 12/23/16 05:00 Lymph # 1.5 X10^3/uL (1.3-2.9) 12/23/16 05:00 [place] # 0.5 x10^3/uL (0.3-0.8) 12/23/16 05:00 Eos # 0.3 x10^3/uL (0.0-0.2) H 12/23/16 05:00 Baso # 0.1 X10^3/uL (0.0-0.1) 12/23/16 05:00 Absolute Nucleated RBC 0.1 /100WBC 12/23/16 05:00 ESR 10 MM/HOUR (0-20) 12/23/16 05:00 Sodium 143 mmol/L (136-145) 12/23/16 05:00 Corrected Sodium TNP 12/23/16 05:00 Potassium 3.0 mmol/L (3.5-5.1) L* 12/23/16 05:00 Chloride 108 mmol/L (98-107) H 12/23/16 05:00 Carbon Dioxide 27.1 mmol/L (21-32) 12/23/16 05:00 BUN 17 mg/dL (7-18) 12/23/16 05:00 Creatinine 0.67 mg/dL (0.55-1.02) 12/23/16 05:00 Est GFR (MDRD) Af Amer > 60 (>60) 12/23/16 05:00 Est GFR (MDRD) Non-Af > 60 (>60) 12/23/16 05:00 Glucose 83 mg/dL (65-99) 12/23/16 05:00 Calcium 8.3 mg/dL (8.5-10.1) L 12/23/16 05:00 Corrected Calcium 9.4 mg/dL (8.5-10.1) 12/23/16 05:00 Total Bilirubin 0.50 mg/dL (0.2-1.0) 12/23/16 05:00 AST 19 Units/L (15-37) 12/23/16 05:00 ALT 21 Units/L (12-78) 12/23/16 05:00 Alkaline Phosphatase 52 Units/L (46-116) 12/23/16 05:00 Creatine Kinase 214 Units/L (26-192) H 12/21/16 05:05 CK-MB (CK-2) 1.8 ng/mL (0-4.0) 12/21/16 05:05 CK/CKMB % Calc 0.8 % (<4) 12/21/16 05:05 Troponin I < 0.02 ng/mL (0-1.5) 12/21/16 05:05 C-Reactive Protein 3.40 mg/L (0-3.0) H 12/23/16 05:00 Total Protein 5.3 g/dL (6.4-8.2) L 12/23/16 05:00 Albumin 2.6 g/dL (3.4-5.0) L 12/23/16 05:00 Globulin 2.7 g/dL (2.5-4.5) 12/23/16 05:00 Albumin/Globulin Ratio 1.0 Ratio (1.1-2.1) L 12/23/16 05:00 Triglycerides 75 mg/dL (0-150) 12/21/16 05:05 Cholesterol 158 mg/dL (0-200) 12/21/16 05:05 LDL Cholesterol, Calc 102 mg/dL (0-100) H 12/21/16 05:05 HDL Cholesterol 41 mg/dL (40-60) 12/21/16 05:05 Cholesterol/HDL Ratio 3.9 (0.0-5.0) 12/21/16 05:05 Valproic Acid 21.2 ug/mL (50-100) L 12/21/16 05:05 - Plan (1) Fracture of lateral malleolus of right fibula Status: Acute Qualifiers: Qualified Code(s): S82.64XA - Nondisplaced fracture of lateral malleolus of right fibula, initial encounter for closed fracture Plan: keep immoblization boot in place (2) Alzheimer's dementia Status: Chronic Qualifiers: Qualified Code(s): G30.1 - Alzheimer's disease with late onset; F02.81 - Dementia in other diseases classified elsewhere with behavioral disturbance Plan: Monitor reorient as appropriate (3) HTN (hypertension) Status: Chronic Plan: monitor (4) Chest pain Status: Acute Qualifiers: Qualified Code(s): R07.2 - Precordial pain Plan: continuous cardiac monitoring, serial cardiac enzymes and EKG (5) Arthritis Status: Chronic (6) GERD (gastroesophageal reflux disease) Status: Chronic Qualifiers: Qualified Code(s): K21.9 - Gastro-esophageal reflux disease without esophagitis
[2016-12-23] MEDS: KLONOPIN TAB 0.5 MG PO SCH (20:55)
[2016-12-23] MEDS: ZANAFLEX PO SCH (20:55)
[2016-12-24 06:23] LABS: BASOPHILS % (AUTO) 0.8 % (0.2-1.0); EOSINOPHILS # (AUTO) 0.3 x10^3/uL (0.0-0.2); EOSINOPHILS % (AUTO) 6.1 % (0.9-2.9); HEMATOCRIT 28.8 % (36.0-47.0); HEMOGLOBIN 10.3 g/dL (12.0-16.0); LYMPHOCYTES # (AUTO) 1.7 X10^3/uL (1.3-2.9); LYMPHOCYTES % (AUTO) 35.2 % (21.0-51.0); MEAN CORPUSCULAR HGB CONC 35.7 g/dL (33.0-35.0); MEAN CORPUSCULAR VOLUME 92.6 fL (80.0-100.0); MEAN PLATELET VOLUME 8.6 fL (7.4-11.0); MONOCYTES # (AUTO) 0.5 x10^3/uL (0.3-0.8); MONOCYTES % (AUTO) 9.9 % (0.0-13.0); NEUTROPHILS # (AUTO) 2.3 x10^3/uL (2.2-4.8); PLATELET COUNT 165 X10^3/uL (150.0-450.0); RED BLOOD COUNT 3.11 X10^6/uL (3.5-5.4); RED CELL DISTRIBUTION WIDTH 13.1 % (11.6-16.5); WHITE BLOOD COUNT 4.8 X10^3/uL (3.6-10.0)
[2016-12-24 06:34] LABS: ALANINE AMINOTRANSFERASE 20 Units/L (12-78); ALBUMIN 2.6 g/dL (3.4-5.0); ALKALINE PHOSPHATASE 51 Units/L (46-116); ASPARTATE AMINO TRANSFERASE 14 Units/L (15-37); BLOOD UREA NITROGEN 20 mg/dL (7-18); CALCIUM 8.6 mg/dL (8.5-10.1); CARBON DIOXIDE 28.1 mmol/L (21-32); CHLORIDE 106 mmol/L (98-107); COR CA(FOR HYPOALB) 9.7 mg/dL (8.5-10.1); CREATININE 0.62 mg/dL (0.55-1.02); GLUCOSE 83 mg/dL (65-99); SODIUM 143 mmol/L (136-145); TOTAL PROTEIN 5.3 g/dL (6.4-8.2); eGFR BLACK RACES > 60 (>60); eGFR NON BLACK RACES > 60 (>60)
[2016-12-24 07:22] LABS: ERYTHROCYTE SEDIMENTATION RATE 8 MM/HOUR (0-20)
[2016-12-24] MEDS: CHLORTHALIDONE PO SCH (08:22)
[2016-12-24] MEDS: MOBIC TAB 15 MG PO SCH (08:22)
[2016-12-24] MEDS: SINGULAIR TAB 10 MG PO SCH (08:22)
[2016-12-24] MEDS: DEPAKOTE SPRINKLE PO SCH ×2 (08:22→20:05)
[2016-12-24] MEDS: LYRICA CAP 75 MG PO SCH ×2 (08:22→20:05)
[2016-12-24] MEDS: K-LYTE EFFERVESCENT PO PRN (08:23)
--- NOTE | 2016-12-24 11:25 | PCM.PROG ---
Progress Note - Progress Note for Day of Date: 12/24/16 - Subjective Subjective: Patient is an 86yo female admitted with chest pain and non displaced distal fibular fracture extending to the lateral malleolus for which she has an immobilization boot in place for. The nurses stated that they have been trouble with her being combative at time we are going to add Zyprexa 2.5mg at bedtime. We are still at this time awaiting half-way placement and continue to work with case management to make this happen. Vital signs this am are 98.1m 60, 18, 98%, 108/42. Labs are within normal limits with the exception of RBC 3.11, Hgb 10.3, Hct 28.8, MCHC 35.7, Eos% 6.1, Eos# 0.3, Potassium 3.4, BUN 20, AST 14, Total Protein 5.3, Albumin 2.6, Albumin/Globulin Ratio 1.0. Patient is still on the potassium replacement protocol for hypokalemia. We will follow up with patient in am with repeat labs and await half-way placement while physical therapy continue to work with patient. - Past Medical Family Social History Past Med/Fam/Surg Hx: No changes since H&P Allergies: Allergies No Known Drug Allergy Allergy (Verified 12/20/16 18:20) - Review of Systems ROS: No change since H&P - Vital Signs and I&O's Vital Signs: Temperature 98.1 F Pulse Rate [Right Radial] 60 Respiratory Rate 18 Blood Pressure [Left Arm] 111/49 Blood Pressure [Right Arm] 108/42 O2 Sat by Pulse Oximetry 98 Intake and Output: Intake & Output 12/21/16 12/22/16 12/23/16 12/24/16 11:59 11:59 11:59 11:59 Intake Total 710 1155 940 Balance 710 1155 940 - Physical Exam Oriented: Not Oriented Eyes: Normal Ear: Normal Nose: Normal Throat: Normal Respiratory: Normal Cardiovascular: Normal : Normal Auscultation: Bowel Sounds: Normal Tenderness: Normal Skin: Normal Musculoskeletal: Ankle (left ankle tenderness and limited ROM due to fracture, immobilization boot in place), Instability Psychiatric: Other (confusion) Mood Description: Calm, Appropriate Affect: Normal Speech Pattern: Unclear, Inappropriate - Laboratory and Diagnostics Result Diagrams: 12/24/16 03:25 12/24/16 03:25 Labs: Laboratory WBC 4.8 X10^3/uL (3.6-10.0) 12/24/16 03:25 RBC 3.11 X10^6/uL (3.5-5.4) L 12/24/16 03:25 Hgb 10.3 g/dL (12.0-16.0) L 12/24/16 03:25 Hct 28.8 % (36.0-47.0) L 12/24/16 03:25 MCV 92.6 fL (80.0-100.0) 12/24/16 03:25 MCH 33.0 pg (27.0-34.0) 12/24/16 03:25 MCHC 35.7 g/dL (33.0-35.0) H 12/24/16 03:25 RDW 13.1 % (11.6-16.5) 12/24/16 03:25 Plt Count 165 X10^3/uL (150.0-450.0) 12/24/16 03:25 MPV 8.6 fL (7.4-11.0) 12/24/16 03:25 Neut % 48.0 % (42.0-75.0) 12/24/16 03:25 Lymph % 35.2 % (21.0-51.0) 12/24/16 03:25 [place] % 9.9 % (0.0-13.0) 12/24/16 03:25 Eos % 6.1 % (0.9-2.9) H 12/24/16 03:25 Baso % 0.8 % (0.2-1.0) 12/24/16 03:25 Neut # 2.3 x10^3/uL (2.2-4.8) 12/24/16 03:25 Lymph # 1.7 X10^3/uL (1.3-2.9) 12/24/16 03:25 [place] # 0.5 x10^3/uL (0.3-0.8) 12/24/16 03:25 Eos # 0.3 x10^3/uL (0.0-0.2) H 12/24/16 03:25 Baso # 0.0 X10^3/uL (0.0-0.1) 12/24/16 03:25 Absolute Nucleated RBC 0.1 /100WBC 12/24/16 03:25 ESR 8 MM/HOUR (0-20) 12/24/16 03:25 Sodium 143 mmol/L (136-145) 12/24/16 03:25 Corrected Sodium TNP 12/24/16 03:25 Potassium 3.4 mmol/L (3.5-5.1) L 12/24/16 03:25 Chloride 106 mmol/L (98-107) 12/24/16 03:25 Carbon Dioxide 28.1 mmol/L (21-32) 12/24/16 03:25 BUN 20 mg/dL (7-18) H 12/24/16 03:25 Creatinine 0.62 mg/dL (0.55-1.02) 12/24/16 03:25 Est GFR (MDRD) Af Amer > 60 (>60) 12/24/16 03:25 Est GFR (MDRD) Non-Af > 60 (>60) 12/24/16 03:25 Glucose 83 mg/dL (65-99) 12/24/16 03:25 Calcium 8.6 mg/dL (8.5-10.1) 12/24/16 03:25 Corrected Calcium 9.7 mg/dL (8.5-10.1) 12/24/16 03:25 Total Bilirubin 0.50 mg/dL (0.2-1.0) 12/24/16 03:25 AST 14 Units/L (15-37) L 12/24/16 03:25 ALT 20 Units/L (12-78) 12/24/16 03:25 Alkaline Phosphatase 51 Units/L (46-116) 12/24/16 03:25 Creatine Kinase 214 Units/L (26-192) H 12/21/16 05:05 CK-MB (CK-2) 1.8 ng/mL (0-4.0) 12/21/16 05:05 CK/CKMB % Calc 0.8 % (<4) 12/21/16 05:05 Troponin I < 0.02 ng/mL (0-1.5) 12/21/16 05:05 C-Reactive Protein 2.90 mg/L (0-3.0) 12/24/16 03:25 Total Protein 5.3 g/dL (6.4-8.2) L 12/24/16 03:25 Albumin 2.6 g/dL (3.4-5.0) L 12/24/16 03:25 Globulin 2.7 g/dL (2.5-4.5) 12/24/16 03:25 Albumin/Globulin Ratio 1.0 Ratio (1.1-2.1) L 12/24/16 03:25 Triglycerides 75 mg/dL (0-150) 12/21/16 05:05 Cholesterol 158 mg/dL (0-200) 12/21/16 05:05 LDL Cholesterol, Calc 102 mg/dL (0-100) H 12/21/16 05:05 HDL Cholesterol 41 mg/dL (40-60) 12/21/16 05:05 Cholesterol/HDL Ratio 3.9 (0.0-5.0) 12/21/16 05:05 Valproic Acid 21.2 ug/mL (50-100) L 12/21/16 05:05 - Plan (1) Fracture of lateral malleolus of right fibula Status: Acute Qualifiers: Qualified Code(s): S82.64XA - Nondisplaced fracture of lateral malleolus of right fibula, initial encounter for closed fracture Plan: keep immoblization boot in place, Continue wiht physical therapy (2) Alzheimer's dementia Status: Chronic Qualifiers: Qualified Code(s): G30.1 - Alzheimer's disease with late onset; F02.81 - Dementia in other diseases classified elsewhere with behavioral disturbance Plan: Monitor reorient as appropriate (3) HTN (hypertension) Status: Chronic Plan: monitor (4) Chest pain Status: Acute Qualifiers: Qualified Code(s): R07.2 - Precordial pain Plan: continuous cardiac monitoring, serial cardiac enzymes and EKG (5) Arthritis Status: Chronic (6) GERD (gastroesophageal reflux disease) Status: Chronic Qualifiers: Qualified Code(s): K21.9 - Gastro-esophageal reflux disease without esophagitis
[2016-12-24] MEDS: ZANAFLEX PO SCH (20:05)
[2016-12-24] MEDS: KLONOPIN TAB 0.5 MG PO SCH (20:05)
[2016-12-25 05:11] LABS: BASOPHILS # (AUTO) 0.1 X10^3/uL (0.0-0.1); BASOPHILS % (AUTO) 1.1 % (0.2-1.0); EOSINOPHILS # (AUTO) 0.3 x10^3/uL (0.0-0.2); EOSINOPHILS % (AUTO) 5.3 % (0.9-2.9); HEMATOCRIT 30.9 % (36.0-47.0); HEMOGLOBIN 10.8 g/dL (12.0-16.0); LYMPHOCYTES # (AUTO) 1.7 X10^3/uL (1.3-2.9); LYMPHOCYTES % (AUTO) 29.5 % (21.0-51.0); MEAN CORPUSCULAR HEMOGLOBIN 32.3 pg (27.0-34.0); MEAN CORPUSCULAR HGB CONC 35.1 g/dL (33.0-35.0); MEAN CORPUSCULAR VOLUME 92.2 fL (80.0-100.0); MEAN PLATELET VOLUME 8.7 fL (7.4-11.0); MONOCYTES # (AUTO) 0.6 x10^3/uL (0.3-0.8); MONOCYTES % (AUTO) 10.5 % (0.0-13.0); NEUTROPHILS # (AUTO) 3.1 x10^3/uL (2.2-4.8); NEUTROPHILS % (AUTO) 53.6 % (42.0-75.0); PLATELET COUNT 191 X10^3/uL (150.0-450.0); RED BLOOD COUNT 3.35 X10^6/uL (3.5-5.4); RED CELL DISTRIBUTION WIDTH 12.8 % (11.6-16.5); WHITE BLOOD COUNT 5.8 X10^3/uL (3.6-10.0)
[2016-12-25 05:18] LABS: ALANINE AMINOTRANSFERASE 22 Units/L (12-78); ALBUMIN 2.8 g/dL (3.4-5.0); ALKALINE PHOSPHATASE 55 Units/L (46-116); ASPARTATE AMINO TRANSFERASE 18 Units/L (15-37); BLOOD UREA NITROGEN 18 mg/dL (7-18); CALCIUM 8.8 mg/dL (8.5-10.1); CARBON DIOXIDE 29.6 mmol/L (21-32); CHLORIDE 105 mmol/L (98-107); COR CA(FOR HYPOALB) 9.8 mg/dL (8.5-10.1); CREATININE 0.64 mg/dL (0.55-1.02); GLUCOSE 86 mg/dL (65-99); SODIUM 143 mmol/L (136-145); TOTAL PROTEIN 5.6 g/dL (6.4-8.2); eGFR BLACK RACES > 60 (>60); eGFR NON BLACK RACES > 60 (>60)
[2016-12-25] MEDS: SINGULAIR TAB 10 MG PO SCH (09:46)
[2016-12-25] MEDS: CHLORTHALIDONE PO SCH (09:46)
[2016-12-25] MEDS: LYRICA CAP 75 MG PO SCH (09:46)
[2016-12-25] MEDS: DEPAKOTE SPRINKLE PO SCH (09:46)
[2016-12-25] MEDS: K-LYTE EFFERVESCENT PO PRN (09:47)
[2016-12-25] MEDS: MOBIC TAB 15 MG PO SCH (09:47)
[2016-12-25 12:10] VITALS: BP 117/63
--- NOTE | 2016-12-25 12:57 | DR.CARTERD ---
- Discharge Summary for: Discharge Summary for Date of:: 12/25/16 - Admission Date Date of Admission: 12/20/16 - Admission Diagnoses Admission Diagnosis: Chest Pain. non displaced distal fibular fracture extending to the lateral. [place]. Dementia. Hypertension - Discharge Date Discharge Date: 12/25/16 - Discharge Diagnoses Discharge Diagnosis: Chest Pain non displaced distal fibular fracture extending to the lateral [place] Dementia Hypertension Hypokalemia - Hospital Course Hospital Course: Patient is an 86yo female admitted with chest pain and non displaced distal fibular fracture extending to the lateral malleolus for which she has an immobilization boot in place for. Dr. Rodney was consulted and his reccomendations included the boot with followup. Patient was treated for hypokalemia throughout the hospital stay with potassium replacement protocol. Physical therapy has worked with patient on a daily basis but has been difficult due her diminished ability to learn new things, she has experienced trouble using the walker. Patients son has decided that he has resigned from his job to help take care of his mother. We are going to set them up with hospice at home to help with her need. Patient has done well with the addition of Zyprexa. Vital signs this am 98.1, 68, 19, 99%, 108/49. Labs are within normal imits with the exception of RBC 3.35, Hgb 10.8, Hct 30.9, MCHC 35.1, Eos % 5.3, Baso% 1.1, Eos# 0.3, Potassium 3.3, Total Protein 5.6, Albumin 2.8, Albumin/Globulin Ratio 1.0. Patient is being discharge home in stable condition she is to continue her home medications wit the addition of zyrexa 2.5mg at bedtime an MicroK 10meq Daily. Patient will be set up with hospice at home, she is to follow up in 1 week, and is to follow up with Dr. Rodney next Wednesday with an ankle Xray prior to office visit. And continue to wear immobilization boot. Labs: Labs are within normal imits with the exception of RBC 3.35, Hgb 10.8, Hct 30.9 , MCHC 35.1, Eos% 5.3, Baso% 1.1, Eos# 0.3, Potassium 3.3, Total Protein 5.6, Albumin 2.8, Albumin/Globulin Ratio 1.0. - Discharge Medications Discharge Medications: Olanzapine [ZYPREXA 2.5 MG *] 2.5 mg PO HS #30 tab 12/25/16 [Rx] Potassium Chloride Cap [Micro K Exten Cap 10 Meq] 10 meq PO DAILY #30 cap [Rx] - Discharge Disposition Discharge Disposition: Home with hospice
== END 2016-12-25 14:00 | disposition hospice, home (50) | DRG 313 ==
LOC: ER 18:18 → ICU 21:32 → OBSVTOIN 12-21 08:30
PROVIDERS: ADMIT Obstetrics & Gynecology Obstetrics; ATTEND Internal Medicine
DX: R07.2 Precordial pain (principal); I10 Essential (primary) hypertension; S82.64XA Nondisplaced fracture of lateral malleolus of right fibula, initial encounter for closed fracture; Y92.098 Other place in other non-institutional residence as the place of occurrence of the external cause; X58.XXXA Exposure to other specified factors, initial encounter; Z78.1 Physical restraint status; R94.5 Abnormal results of liver function studies; E87.0 Hyperosmolality and hypernatremia; D64.89 Other specified anemias; F02.80 Dementia in other diseases classified elsewhere, unspecified severity, without behavioral disturbance, psychotic disturbance, mood disturbance, and anxiety; G30.8 Other Alzheimer's disease; M13.89 Other specified arthritis, multiple sites; R06.02 Shortness of breath; W18.39XA Other fall on same level, initial encounter; E87.6 Hypokalemia; R26.89 Other abnormalities of gait and mobility
CPT/HCPCS: 36415; 70450; 71010; 72170; 73610; 73630; 80053; 80061; 80164; 81001; 82550; 82553; 84132; 84484; 85025; 85652; 86140; 93005; 94760; 96365; 96372; 97535; 99284; A4216; A4222; G8978; G8979; G8987; G8988; Q0177; G0378; J2270

== ENCOUNTER → 2017-01-01 | Outpatient (CLI) | payer OTHER, BC ==
[2016-12-25 12:10] VITALS: BP 117/63
--- NOTE | 2017-01-01 10:28 | RAD ---
HISTORY: Follow up fracture Study: Right ankle three view Comparison: December 20, 2016 Findings: Once again noted is a comminuted distal fibular fracture not significantly changed in position or al ignment from the prior examination. There has been some resorption along the fracture line. No callu s is identified. The distal tibia is intact. There has been interval development since the prior exa mination of some widening of the tibiotalar joint anteriorly. IMPRESSION: Comminuted fracture distal fibula with some restored castellanos along the fracture line but no callus as y et identified Interval development of some mild widening of the ankle mortise anteriorly Reported By:
== END | disposition home or self-care (01) ==
LOC: RAD 09:28
PROVIDERS: ATTEND Specialist
DX: S82.831A Other fracture of upper and lower end of right fibula, initial encounter for closed fracture (principal); X58.XXXA Exposure to other specified factors, initial encounter
CPT/HCPCS: 73610